=== PATIENT | female | born 1990 | race Two or more races ===

== ENCOUNTER 2020-12-21 18:07 | Emergency (ER) | payer MEDICAID, SELFPAY ==
[2020-12-21] MEDS ORDERED: HYDROmorphone 0.5 MG/0.5 ML Syringe IVPUSH ONE (18:37)
--- NOTE | 2020-12-21 18:58 | EDM.PDOC ---
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 The patient reports that her last menstrual period was 10/27/20. She states that today she took a test and it did come back positive and states she was approximately 5 to 6 weeks . She states that about an hour prior to arrival in the emergency department she did develop some vaginal bleeding. She states that she did not even fully saturate 1 pad and came to the emergency department. She also complains of severe lower pelvic cramping. She denies any recent fever, chills, nausea, vomiting or diarrhea. She denies any urinary symptoms. She is a 4 para 2. Bilateral Lower Abdominal Pain Score (Numeric/FACES): 8 - Related Data Allergies Allergy/AdvReac Type Severity Reaction Status Date / Time blueberry Allergy Hives Verified 12/21/20 18:25 Home Meds: Home Meds . 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 - Infectious Disease History Infectious Disease History: Reports: None - Past Surgical History GI Surgical History: Reports: Appendectomy Social & Family History - Family History Family Medical History: No Pertinent Family History - Tobacco Use Tobacco Use Status *Q: Never Tobacco User Second Hand Smoke Exposure: No - Caffeine Use Caffeine Use: Reports: None - Recreational Drug Use Recreational Drug Use: No ED ROS GENERAL - Review of Systems Review Of Systems: See Below Constitutional: Reports: No Symptoms HEENT: Reports: No Symptoms Respiratory: Reports: No Symptoms Cardiovascular: Reports: No Symptoms Endocrine: Reports: No Symptoms GI/Abdominal: Reports: Abdominal Pain (Suprapubic). Denies: Constipation, Diarrhea, Decreased Appetite, Nausea, Vomiting : Reports: No Symptoms Musculoskeletal: Reports: No Symptoms Skin: Reports: No Symptoms Neurological: Reports: No Symptoms Psychiatric: Reports: No Symptoms Hematologic/Lymphatic: Reports: No Symptoms Immunologic: Reports: No Symptoms ED EXAM - Physical Exam Exam: See Below Exam Limited By: No Limitations General Appearance: Alert, WD/WN, Moderate Distress Ears: Normal External Exam, Hearing Grossly Normal Nose: Normal Inspection Throat/Mouth: Normal Inspection, Normal Lips, Normal Voice, No Airway Compromise Head: Atraumatic Neck: Normal Inspection, Supple Respiratory/Chest: No Respiratory Distress, Lungs Clear, Normal Breath Sounds, No Accessory Muscle Use, Chest Non-Tender Cardiovascular: Normal Peripheral Pulses, Regular Rate, Rhythm, No Edema, No Murmur GI/Abdominal Exam: Normal Bowel Sounds, Soft, No Distention, Tender (Suprapubic) Rectal Exam: Deferred Back Exam: Normal Inspection Extremities: Normal Inspection Neurological: Alert, Oriented, Normal Cognition Psychiatric: Normal Affect, Normal Mood Skin Exam: Warm, Dry, Intact, Normal Color, No Rash Lymphatic: No Adenopathy Course - Vital Signs Text/Narrative:: Patient presents the emergency department with lower pelvic pain. She states this developed this afternoon. Last menstrual period was 10/27/2020. She states that she did take a test today and it came back positive. Proximally an hour prior to the arrival in the emergency department she developed vaginal bleeding and lower pelvic pain. She states that is more severe on her left side than her right however she has bilateral pelvic tenderness noted. She denies any urinary symptoms. She states that she has not saturated 1 full pad since the bleeding has started and it has pretty much stopped by the time she arrived in the emergency department. I have ordered labs, saline lock, urinalysis, and a transvaginal ultrasound. The patient will also be medicated for pain. Last Recorded V/S: Last Vital Signs Temp 96.9 F 12/21/20 18:19 Pulse 78 12/21/20 18:19 Resp 18 12/21/20 18:19 BP 114/82 12/21/20 18:19 Pulse Ox 97 12/21/20 18:19 - Orders/Labs/Meds Orders: Active Orders 24 hr Category Date Time Status OB Transvaginal [US] Stat Exams 12/21/20 18:38 Taken CULTURE URINE [] Stat Lab 12/21/20 20:33 Received Labs: Laboratory Tests 12/21/20 12/21/20 12/21/20 Range/Units 19:05 19:05 19:05 WBC 10.18 H (3.98-10.04) K/mm3 RBC 5.03 (3.98-5.22) M/mm3 Hgb 13.6 D (11.2-15.7) gm/dl Hct 42.0 (34.1-44.9) % MCV 83.5 D (79.4-94.8) fl MCH 27.0 (25.6-32.2) pg MCHC 32.4 (32.2-35.5) g/dl RDW Std Deviation 46.7 H (36.4-46.3) fL Plt Count 432 H D (182-369) K/mm3 MPV 9.2 L (9.4-12.3) fl Neut % (Auto) 67.5 (34.0-71.1) % Lymph % (Auto) 22.0 (19.3-51.7) % [place] % (Auto) 8.0 (4.7-12.5) % Eos % (Auto) 1.7 (0.7-5.8) Baso % (Auto) 0.6 (0.1-1.2) % Neut # (Auto) 6.88 H (1.56-6.13) K/mm3 Lymph # (Auto) 2.24 (1.18-3.74) K/mm3 [place] # (Auto) 0.81 H (0.24-0.36) K/mm3 Eos # (Auto) 0.17 (0.04-0.36) K/mm3 Baso # (Auto) 0.06 (0.01-0.08) K/mm3 Manual Slide Review Sodium 138 (136-145) mEq/L Potassium 3.8 (3.5-5.1) mEq/L Chloride 102 (98-107) mEq/L Carbon Dioxide 25 (21-32) mEq/L Anion Gap 14.8 (5-15) BUN 11 (7-18) mg/dL Creatinine 0.7 (0.55-1.02) mg/dL Est Cr Clr Drug Dosing 127.08 mL/min Estimated GFR (MDRD) > 60 (>60) mL/min BUN/Creatinine Ratio 15.7 (14-18) Glucose 102 (74-106) mg/dL Calcium 8.4 L (8.5-10.1) mg/dL Total Bilirubin 0.7 (0.2-1.0) mg/dL AST 63 H (15-37) U/L ALT 138 H (14-59) U/L Alkaline Phosphatase 103 (46-116) U/L Total Protein 8.5 H (6.4-8.2) g/dl Albumin 3.8 (3.4-5.0) g/dl Globulin 4.7 gm/dL Albumin/Globulin Ratio 0.8 L (1-2) HCG, Quant 3.0 mIU/mL Urine Color (Yellow) Urine Appearance (Clear) Urine pH (5.0-8.0) Ur Specific [place] (1.005-1.030) Urine Protein (Negative) Urine Glucose (UA) (Negative) Urine Ketones (Negative) Urine Occult Blood (Negative) Urine Nitrite (Negative) Urine Bilirubin (Negative) Urine Urobilinogen (0.2-1.0) Ur Leukocyte Esterase (Negative) Urine RBC (0-5) /hpf Urine WBC (0-5) /hpf Ur Squamous Epith Cells (0-5) /hpf Amorphous Sediment (NOT SEEN) /hpf Urine Bacteria (FEW) /hpf Urine Mucus (FEW) /hpf Blood Type O POSITIVE 12/21/20 Range/Units 20:33 WBC (3.98-10.04) K/mm3 RBC (3.98-5.22) M/mm3 Hgb (11.2-15.7) gm/dl Hct (34.1-44.9) % MCV (79.4-94.8) fl MCH (25.6-32.2) pg MCHC (32.2-35.5) g/dl RDW Std Deviation (36.4-46.3) fL Plt Count (182-369) K/mm3 MPV (9.4-12.3) fl Neut % (Auto) (34.0-71.1) % Lymph % (Auto) (19.3-51.7) % [place] % (Auto) (4.7-12.5) % Eos % (Auto) (0.7-5.8) Baso % (Auto) (0.1-1.2) % Neut # (Auto) (1.56-6.13) K/mm3 Lymph # (Auto) (1.18-3.74) K/mm3 [place] # (Auto) (0.24-0.36) K/mm3 Eos # (Auto) (0.04-0.36) K/mm3 Baso # (Auto) (0.01-0.08) K/mm3 Manual Slide Review Sodium (136-145) mEq/L Potassium (3.5-5.1) mEq/L Chloride (98-107) mEq/L Carbon Dioxide (21-32) mEq/L Anion Gap (5-15) BUN (7-18) mg/dL Creatinine (0.55-1.02) mg/dL Est Cr Clr Drug Dosing mL/min Estimated GFR (MDRD) (>60) mL/min BUN/Creatinine Ratio (14-18) Glucose (74-106) mg/dL Calcium (8.5-10.1) mg/dL Total Bilirubin (0.2-1.0) mg/dL AST (15-37) U/L ALT (14-59) U/L Alkaline Phosphatase (46-116) U/L Total Protein (6.4-8.2) g/dl Albumin (3.4-5.0) g/dl Globulin gm/dL Albumin/Globulin Ratio (1-2) HCG, Quant mIU/mL Urine Color Yellow (Yellow) Urine Appearance Slt cloudy H (Clear) Urine pH 6.0 (5.0-8.0) Ur Specific [place] 1.025 (1.005-1.030) Urine Protein Negative (Negative) Urine Glucose (UA) Negative (Negative) Urine Ketones Negative (Negative) Urine Occult Blood Trace-intact H (Negative) Urine Nitrite Negative (Negative) Urine Bilirubin Negative (Negative) Urine Urobilinogen 0.2 (0.2-1.0) Ur Leukocyte Esterase 1+ H (Negative) Urine RBC 0-5 (0-5) /hpf Urine WBC 5-10 H (0-5) /hpf Ur Squamous Epith Cells 10-20 H (0-5) /hpf Amorphous Sediment Moderate H (NOT SEEN) /hpf Urine Bacteria Few (FEW) /hpf Urine Mucus Few (FEW) /hpf Blood Type Meds: Medications Discontinued Medications Generic Name Dose Route Start Last Admin Trade Name Freq PRN Reason Stop Dose Admin Hydromorphone HCl 0.5 mg 12/21/20 18:37 12/21/20 19:38 Hydromorphone 0.5 Mg/0.5 Ml Syringe IVPUSH 12/21/20 18:38 0.5 mg ONETIME ONE Administration Metoclopramide HCl 5 mg 12/21/20 20:36 12/21/20 21:04 Metoclopramide 10 Mg/2 Ml Sdv IVPUSH 12/21/20 20:37 5 mg ONETIME ONE Administration Ondansetron HCl 4 mg 12/21/20 19:44 12/21/20 20:10 Ondansetron 4 Mg/2 Ml Sdv IVPUSH 12/21/20 19:45 4 mg ONETIME ONE Administration - Re-Assessments/Exams Free Text/Narrative Re-Assessment/Exam: 12/21/20 20:22 Hematology reveals a WBC of 10.18, hemoglobin 13.6, hematocrit 42, platelet count 432, chemistry reveals a sodium 138, potassium 3.8, anion gap 14.8, BUN 1 1, creatinine 0.7, glucose is 102, AST is 63, ALT 138 quantitative hCG is 3.0 While in the ultrasound the patient is complaining of nausea likely due to being medicated with Dilaudid. I have ordered for the patient received 4 mg of Zofran. I have also ordered a urinalysis with micro. 12/21/20 21:37 Urinalysis reveals a trace of intact blood, nitrite negative, leukocyte Estrace 1+, urine WBC 5-10, urine squamous epithelial cells 10-20, amorphous sediment moderate Patient is O positive [facility] radiologist impression: 1. 6 mm cystic area in the lower uterine segment which could be a gestational sac and represent an early . No pole or heart rate. Estimated gestational age is 5 weeks and 2 days. Consider follow-up exam in 2 weeks. 2. 1.2 x 1 x 1.3 cm hypoechoic region in the anterior uterine fundus which may represent a fibroid. This is likely a threatened miscarriage. I discussed this with the patient and gave her strict return precautions should she develop heavy vaginal bleeding. She will need to follow up with Dr. Ortiz, her OBGYN, this week. Departure - Departure Time of Disposition: 21:41 Disposition: Home, Self-Care 01 Condition: Good Clinical Impression: Threatened - Discharge Information Instructions: Threatened Miscarriage, [id number], Pain Medicine Instructions, [id number] Referrals: Tyler Ortiz MD [Primary Care Provider] - Forms: ED Department Discharge Additional Instructions: You were seen in the emergency department today with complaints of lower abdominal pain and a positive test. Labs were completed as well as an ultrasound. Your labs did not show any sign of infection. Your hCG level was 3 which is significantly lower than where it should be at this stage of your . Your ultrasound revealed a cystic area in your lower uterus however no pole or heart rate was detected. Estimated gestational age is 5 weeks and 2 days. With this information it is likely you were going to have a miscarriage. You will develop significant lower abdominal cramping and vaginal bleeding. Should you develop heavy vaginal bleeding, greater than 1 pad per hour x3 hours, you will need to return to the emergency department for further evaluation. Otherwise, recommend that you follow-up with your PAINTER DECORATOR, Dr. Ortiz, sometime this week for reevaluation. You may take Aleve 2 tabs every 12 hours as needed for abdominal cramping. Sepsis Event Note (ED) - Evaluation Sepsis Screening Result: No Definite Risk - Focused Exam Vital Signs: Vital Signs Temp Pulse Resp BP Pulse Ox 12/21/20 18:19 96.9 F 78 18 114/82 97 - My Orders Last 24 Hours: My Active Orders 12/21/20 18:38 OB Transvaginal [US] Stat 12/21/20 20:33 CULTURE URINE [RM] Stat - Assessment/Plan Last 24 Hours: My Active Orders 12/21/20 18:38 OB Transvaginal [US] Stat 12/21/20 20:33 CULTURE URINE [RM] Stat
[2020-12-21] MEDS ORDERED: Ondansetron 4 MG/2 ML SDV IVPUSH ONE (19:44)
[2020-12-21] MEDS ORDERED: Metoclopramide 10 MG/2 ML SDV IVPUSH ONE (20:36)
--- NOTE | 2020-12-22 09:39 | US ---
First trimester obstetrical ultrasound: Multiple real-time images were obtained transabdominally and transvaginally. Comparison: No previous study is available Findings: No intrauterine gestational sac is seen. Small cystic area is seen within the cervix. Uncertain if this represents a miscarrying small gestational sac or a nabothian cyst. Both ovaries appear within normal limits. Small fibroid is noted within the subendometrial location within the anterior uterine body measuring 1.1 cm. Impression: 1. Cystic area within the cervix. Uncertain if this represents miscarrying gestational sac or a nabothian cyst. 2. Small uterine fibroid is seen. 3. No additional abnormality is seen. Diagnostic code #3 I agree with preliminary report from [facility] finalized on 12/21/20, 10:01 PM CDT, code 1
== END 2020-12-21 21:55 | disposition home or self-care (01) ==
LOC: JD.ED 18:07
DX: O20.0 Threatened abortion (principal); Z3A.01 Less than 8 weeks gestation of pregnancy
CPT/HCPCS: 36415; 76817; 80053; 81001; 84702; 85025; 86900; 86901; 87086; 96374; 96375; 99284; J1170; J2405; J2765; 99283

== ENCOUNTER 2021-01-27 22:20 | Emergency (ER) | payer MEDICAID ==
[2021-01-28] MEDS ORDERED: Ondansetron 4 MG Tab.DIS PO ONE (00:17)
--- NOTE | 2021-01-28 01:41 | EDM.PDOC ---
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 She had some blood when she wiped tonight. She has no pain. She denies fever, chills, cough, chest pain, shortness fo breath, nausea or vomiting. Dr Ortiz is her doctor and she has been getting HCGs and she had an US. The US showed a at 5 weeks a few weeks ago. Her last HCG was 2,591 on 01/14/21. She has an US scheduled for tomorrow. Onset: Sudden Duration: Minutes: Severity: Mild Improves with: Reports: None Worsens with: Reports: None Associated Symptoms: Reports: No Other Symptoms - Related Data Allergies Allergy/AdvReac Type Severity Reaction Status Date / Time bee venom protein (honey bee) Allergy Severe Hives Verified 01/27/21 22:32 blueberry Allergy Severe Hives Verified 01/27/21 22:32 Home Meds: Home Meds Pnv No.103/Folic/Om3s/Fish Oil [ Gummies] 1 tab PO DAILY 01/27/21 [History] Past Medical History - Past Health History Medical/Surgical History: Denies Medical/Surgical History Cardiovascular History: Reports: Heart Murmur 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: , 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 - Infectious Disease History Infectious Disease History: Reports: None - Past Surgical History GI Surgical History: Reports: Appendectomy Female Surgical History: Reports: Section Social & Family History - Family History Family Medical History: No Pertinent Family History - Tobacco Use Tobacco Use Status *Q: Never Tobacco User - Caffeine Use Caffeine Use: Reports: None - Recreational Drug Use Recreational Drug Use: No ED ROS GENERAL - Review of Systems Review Of Systems: See Below Constitutional: Reports: No Symptoms HEENT: Reports: No Symptoms Respiratory: Reports: No Symptoms Cardiovascular: Reports: No Symptoms Endocrine: Reports: No Symptoms GI/Abdominal: Reports: No Symptoms : Reports: Other (vaginal bleeding) Musculoskeletal: Reports: No Symptoms Skin: Reports: No Symptoms ED EXAM - Physical Exam Exam: See Below Exam Limited By: No Limitations General Appearance: Alert, No Apparent Distress Ears: Normal External Exam Nose: Normal Inspection Head: Atraumatic, Normocephalic Neck: Normal Inspection Respiratory/Chest: No Respiratory Distress, Lungs Clear, Normal Breath Sounds Cardiovascular: Regular Rate, Rhythm, No Edema, No Murmur GI/Abdominal Exam: Soft, Non-Tender, No Organomegaly, No Mass Extremities: Normal Inspection Neurological: Alert, Oriented, No Motor/Sensory Deficits Course - Vital Signs Last Recorded V/S: Last Vital Signs Temp 97.6 F 01/27/21 22:36 Pulse 83 01/27/21 22:36 Resp 20 01/27/21 22:36 BP 126/75 01/27/21 22:36 Pulse Ox 100 01/27/21 22:36 - Orders/Labs/Meds Orders: Active Orders 24 hr Category Date Time Status OB Transvaginal [US] Stat Exams 01/27/21 22:55 Taken Labs: Laboratory Tests 01/27/21 01/27/21 01/27/21 Range/Units 23:27 23:27 23:27 WBC 9.00 (3.98-10.04) K/mm3 RBC 4.64 (3.98-5.22) M/mm3 Hgb 13.2 (11.2-15.7) gm/dl Hct 40.0 (34.1-44.9) % MCV 86.2 (79.4-94.8) fl MCH 28.4 (25.6-32.2) pg MCHC 33.0 (32.2-35.5) g/dl RDW Std Deviation 50.4 H (36.4-46.3) fL Plt Count 426 H (182-369) K/mm3 MPV 9.5 (9.4-12.3) fl Neut % (Auto) 57.4 (34.0-71.1) % Lymph % (Auto) 30.8 (19.3-51.7) % [place] % (Auto) 8.8 (4.7-12.5) % Eos % (Auto) 1.9 (0.7-5.8) Baso % (Auto) 0.9 (0.1-1.2) % Neut # (Auto) 5.17 (1.56-6.13) K/mm3 Lymph # (Auto) 2.77 (1.18-3.74) K/mm3 [place] # (Auto) 0.79 H (0.24-0.36) K/mm3 Eos # (Auto) 0.17 (0.04-0.36) K/mm3 Baso # (Auto) 0.08 (0.01-0.08) K/mm3 HCG, Quant 561.0 mIU/mL Blood Type O POSITIVE Meds: Medications Discontinued Medications Generic Name Dose Route Start Last Admin Trade Name Frenicol PRN Reason Stop Dose Admin Ondansetron HCl 4 mg 01/28/21 00:17 01/28/21 00:21 Ondansetron 4 Mg Tab.Dis PO 01/28/21 00:18 4 mg ONETIME ONE Administration - Re-Assessments/Exams Free Text/Narrative Re-Assessment/Exam: 01/28/21 01:38 I ordered labs and an US. Her CBC looks good. She is O positive. Her HCG today is 561. The US shows gestational sac present but no pole or heart rate. Estimated gestational age is 5 weeks 5 days. Findings may represent an early gestation. Consider follow-up examination in 2 weeks. 1.6 X 1.4 X 1.4cm anterior fundal fibroid. I feel this is a threatened . I will have her call Dr Ortiz in the morning. Departure - Departure Time of Disposition: 01:45 Disposition: Home, Self-Care 01 Condition: Good Clinical Impression: Threatened - Discharge Information *PRESCRIPTION DRUG MONITORING PROGRAM REVIEWED*: Not Applicable *COPY OF PRESCRIPTION DRUG MONITORING REPORT IN PATIENT GARETH: Not Applicable Referrals: Tyler Ortiz MD [Primary Care Provider] - 1 Week Additional Instructions: Your HCG level went from 2.591 on 01/14/21 to 561 today. Your ultrasound shows a gestational sac but no pole or heart rate. These are not good signs. I feel you are going to have a miscarriage. Call Dr Ortiz in the morning. Please return if you are worse such as pain, or vaginal bleeding filling more then a pad an hour. Sepsis Event Note (ED) - Evaluation Sepsis Screening Result: No Definite Risk - Focused Exam Vital Signs: Vital Signs Temp Pulse Resp BP Pulse Ox 01/27/21 22:36 97.6 F 83 20 126/75 100 - My Orders Last 24 Hours: My Active Orders 01/27/21 22:55 OB Transvaginal [US] Stat - Assessment/Plan Last 24 Hours: My Active Orders 01/27/21 22:55 OB Transvaginal [US] Stat
--- NOTE | 2021-01-28 08:25 | US ---
First trimester obstetrical ultrasound: Multiple real-time images were obtained transvaginally. Dates: Current ultrasound: GAVIN 09/21/21, gestational age 5 weeks 5 days Single intrauterine gestational sac is seen. No discrete pole or yolk sac is noted. Small fibroid is noted within the fundus of the uterus measuring 1.6 cm. Left maternal ovary is not visualized. Right maternal ovary is felt to be within normal limits. Measurements: Gestational sac: 0.93 cm - 5 weeks 5 days Impression: 1. Single intrauterine gestation. Dates as noted above. No yolk sac or pole are seen. Consider repeating study in 11 days to hopefully confirm normal and rule out miscarriage. 2. Small uterine fundus fibroid. Diagnostic code #2 I agree with preliminary report from [facility], finalized on 01/28/21, 2:19 AM CDT, code 1
== END 2021-01-28 01:54 | disposition home or self-care (01) ==
LOC: JD.ED 22:20
DX: O20.0 Threatened abortion (principal); Z91.030 Bee allergy status; Z91.018 Allergy to other foods; Z3A.01 Less than 8 weeks gestation of pregnancy
CPT/HCPCS: 36415; 76817; 84702; 85025; 86900; 86901; 99284; A9270; 99283

== ENCOUNTER 2021-01-28 18:33 | Day surgery (SDC) | payer MEDICAID ==
[2021-01-28] MEDS ORDERED: Ondansetron 4 MG/2 ML SDV IVPUSH ONE (19:29)
[2021-01-28] MEDS ORDERED: HYDROmorphone 0.5 MG/0.5 ML Syringe IVPUSH ONE ×2 (19:29→20:22)
[2021-01-28] MEDS ORDERED: Sodium Chloride 0.9% 1,000 ML IV SCH (19:30)
--- NOTE | 2021-01-28 19:38 | EDM.PDOC ---
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 Singh is a very pleasant 30-year-old woman who now presents the ED due to a spontaneous . The patient is -0-1-2, LMP 11/27/2021, giving her a gestational age of 8 weeks 6 days by dates with an GAVIN of 09/03/2021. An ultrasound a few weeks ago showed an intrauterine at 5 weeks gestation. Her quantitative hCG was 2591 on 01/14/2021. Medical records indicate that she was seen in this ED yesterday, 01/27/2021, after developing scant painless vaginal bleeding with no other symptoms. She was found to be hemodynamically stable, afebrile, saturating 100% on room air. Her physical exam, including her abdomen, was unremarkable. Work-up included a CBC, quantitative hCG, blood type, and transvaginal ultrasound. Her quantitative hCG was found to be down to 561. Her blood type is O+. A transvaginal ultrasound found a single intrauterine gestation at 5 weeks 5 days, but no yolk sac or pole found. The patient was discharged home with the recommendation that she follow-up with her INSTRUMENT REPAIR SPECIALIST today. The patient states that she contacted her INSTRUMENT REPAIR SPECIALIST today, who told her to expect vaginal bleeding, including passing clots. She was to take ibuprofen as needed for discomfort. He wanted to see her in 2 weeks. The patient now returns to the ED stating that she developed pelvic cramps and significant vaginal bleeding around 17:30 this evening, including passing clots. She estimates the amount of bleeding to be 2 pads per hour. No recent fever. The patient states that she has not eaten anything today, although she drank some water and apple juice around noon today. Nothing since. Here in the ED tonight, the patient's initial BP is found to be elevated at 161/99, otherwise, she is hemodynamically stable, afebrile, saturating 98% on room air. She appears to be anxious and somewhat tearful, although in no acute distress. Prior to yesterday, the patient denies having a recent fever, chills, sore throat, ear pain, nasal or sinus congestion, cough, dyspnea, chest pain, palpitations, nausea, vomiting, constipation, diarrhea, abdominal pain, urinary symptoms, recent weight gain or weight loss, recent bloody bowel movements or black bowel movements, recent joint aches, headaches, or rashes. The patient does not have a PCP. Her INSTRUMENT REPAIR SPECIALIST is Dr. Tyler Ortiz. Bilateral Lower Abdomen Pain Score (Numeric/FACES): 10 - Related Data Allergies Allergy/AdvReac Type Severity Reaction Status Date / Time bee venom protein (honey bee) Allergy Severe Hives Verified 01/28/21 18:49 blueberry Allergy Severe Hives Verified 01/28/21 18:49 Home Meds: Home Meds Hydrocodone/Acetaminophen [Hydrocodone-Acetamin 5-325 mg] 1 - 2 each PO Q6H PRN #16 tablet 01/28/21 [Rx] Ibuprofen 600 mg PO Q6H PRN #60 01/28/21 [Rx] miSOPROStoL [Cytotec] 400 mcg PO Q6H #8 tablet 01/28/21 [Rx] Past Medical History INSTRUMENT REPAIR SPECIALIST History: Reports: Spontaneous (x 1) Endocrine/Metabolic History: Reports: Obesity/BMI 30+ - Past Surgical History HEENT Surgical History: Reports: Oral Surgery (dental extraction) GI Surgical History: Reports: Appendectomy Female Surgical History: Reports: Section (x 2) Social & Family History - Tobacco Use Tobacco Use Status *Q: Never Tobacco User - Caffeine Use Caffeine Use: Reports: None - Alcohol Use Alcohol Use History: No - Recreational Drug Use Recreational Drug Use: No - Living Situation & Occupation Living situation: Reports: Single, with Family Occupation: Unemployed ED ROS GENERAL - Review of Systems Review Of Systems: Comprehensive ROS is negative, except as noted in HPI. ED EXAM - Physical Exam Exam: See Below Exam Limited By: No Limitations General Appearance: Alert, WD/WN, Anxious Eye Exam: Bilateral Eye: EOMI, Normal Inspection Ears: Normal External Exam, Hearing Grossly Normal Nose: Normal Inspection Throat/Mouth: Normal Inspection, Normal Lips, Normal Voice, No Airway Compromise Head: Atraumatic, Normocephalic Neck: Normal Inspection, Full Range of Motion Respiratory/Chest: No Respiratory Distress, Lungs Clear, Normal Breath Sounds, No Accessory Muscle Use Cardiovascular: Normal Peripheral Pulses, Regular Rate, Rhythm, No Edema, No Gallop, No JVD, No Murmur, No Rub GI/Abdominal Exam: Normal Bowel Sounds, Soft, No Organomegaly, No Distention, No Abnormal Bruit, No Mass, Tender (Suprapubically only. Nontender elsewhere.) Back Exam: Normal Inspection, Full Range of Motion, NT Extremities: Normal Inspection, Normal Range of Motion, No Pedal Edema, Normal Capillary Refill Neurological: Alert, Oriented, Normal Cognition, No Motor/Sensory Deficits Psychiatric: Anxious, Tearful Skin Exam: Warm, Dry, Intact, Normal Color, No Rash Course - Vital Signs Last Recorded V/S: Last Vital Signs Temp 36.2 C 01/28/21 18:51 Pulse 60 01/28/21 18:51 Resp 15 01/28/21 18:51 BP 161/99 H 01/28/21 18:51 Pulse Ox 98 01/28/21 18:51 - Orders/Labs/Meds Orders: Active Orders 24 hr Category Date Time Status Patient Status [ADT] Routine ADT 01/28/21 20:29 Active Sodium Chloride 0.9% [Normal Saline] 1,000 ml Med 01/28/21 19:30 Active IV ASDIRECTED Schedule Procedure [COMM] Stat Oth 01/28/21 20:29 Ordered Medication Orders Sodium Chloride (Normal Saline) 1,000 mls @ 150 mls/hr IV ASDIRECTED SAILAJA Last Admin: 01/28/21 19:51 Dose: 150 mls/hr Documented by: TYLER Labs: Laboratory Tests 01/28/21 Range/Units 19:45 SARS-CoV-2 RNA (TED) Negative (NEGATIVE) Meds: Medications Generic Name Dose Route Start Last Admin Trade Name Freq PRN Reason Stop Dose Admin Sodium Chloride 1,000 mls @ 150 mls/hr 01/28/21 19:30 01/28/21 19:51 Normal Saline IV 150 mls/hr ASDIRECTED SAILAJA Administration Discontinued Medications Generic Name Dose Route Start Last Admin Trade Name Freq PRN Reason Stop Dose Admin Dexamethasone Confirm 01/28/21 20:54 Dexamethasone 4 Mg/Ml 5 Ml Mdv Administered 01/28/21 20:55 Dose 20 mg .ROUTE .STK-MED ONE Doxycycline Hyclate 200 mg 01/28/21 20:42 01/28/21 20:56 Doxycycline 100 Mg Cap PO 01/28/21 20:43 200 mg ONETIME ONE Administration Fentanyl Confirm 01/28/21 20:53 Fentanyl 250 Mcg/5 Ml Sdv Administered 01/28/21 20:54 Dose 250 mcg .ROUTE .STK-MED ONE Hydromorphone HCl 0.5 mg 01/28/21 19:29 01/28/21 19:51 Hydromorphone 0.5 Mg/0.5 Ml Syringe IVPUSH 01/28/21 19:30 0.5 mg ONETIME ONE Administration Hydromorphone HCl 0.5 mg 01/28/21 20:22 01/28/21 20:28 Hydromorphone 0.5 Mg/0.5 Ml Syringe IVPUSH 01/28/21 20:23 0.5 mg ONETIME ONE Administration Ketorolac Tromethamine Confirm 01/28/21 20:54 Ketorolac 30 Mg/Ml Sdv Administered 01/28/21 20:55 Dose 30 mg .ROUTE .STK-MED ONE Lidocaine HCl Confirm 01/28/21 20:54 Lidocaine 1% 5 Ml Sdv Administered 01/28/21 20:55 Dose 5 ml .ROUTE .STK-MED ONE Ondansetron HCl 4 mg 01/28/21 19:29 01/28/21 19:51 Ondansetron 4 Mg/2 Ml Sdv IVPUSH 01/28/21 19:30 4 mg ONETIME ONE Administration Ondansetron HCl Confirm 01/28/21 20:54 Ondansetron 4 Mg/2 Ml Sdv Administered 01/28/21 20:55 Dose 4 mg .ROUTE .STK-MED ONE Propofol Confirm 01/28/21 20:53 Propofol 200 Mg/20 Ml Sdv Administered 01/28/21 20:54 Dose 400 mg .ROUTE .STK-MED ONE - Re-Assessments/Exams Free Text/Narrative Re-Assessment/Exam: 01/28/21 19:33 As above, the patient is 8 weeks 6 days gestation, by dates, LMP 11/27/2020, GAVIN 09/03/2021, -0-1-2. She had a scant amount of painless vaginal bleeding last night, and was seen in this ED where a CBC was unremarkable, but her quantitative hCG was 561, down from 2591 on 01/14/2021. Her blood type is O+. A transvaginal ultrasound found a single intrauterine gestation at 5 weeks 5 days, but with no yolk sac or pole. The patient contacted Dr. Ortiz today, who told her that she should expect to have vaginal bleeding, including passing clots, and to take ibuprofen for discomfort. He wanted to see her in 2 weeks. The patient now returns to the ED after developing consistent vaginal bleeding, including passing clots, along with pelvic cramps around 17:30 this evening. She last ate yesterday. Case discussed with Dr. Lovell at 19:29. He will come to the ED to evaluate the patient, with the intention of taking her to the operating room for a D&C. He asked that we call the OR team in. 01/28/21 19:51 Dr. Lovell is here. Departure - Departure Time of Disposition: 19:52 Disposition: Refer to Observation Condition: Good Clinical Impression: Spontaneous - Discharge Information *PRESCRIPTION DRUG MONITORING PROGRAM REVIEWED*: Not Applicable *COPY OF PRESCRIPTION DRUG MONITORING REPORT IN PATIENT GARETH: Not Applicable Sepsis Event Note (ED) - Evaluation Sepsis Screening Result: No Definite Risk - Focused Exam Vital Signs: Vital Signs Temp Pulse Resp BP Pulse Ox 01/28/21 18:51 36.2 C 60 15 161/99 H 98 - My Orders Last 24 Hours: My Active Orders 01/28/21 19:30 Sodium Chloride 0.9% [Normal Saline] 1,000 ml IV ASDIRECTED - Assessment/Plan Last 24 Hours: My Active Orders 01/28/21 19:30 Sodium Chloride 0.9% [Normal Saline] 1,000 ml IV ASDIRECTED
--- NOTE | 2021-01-28 20:38 | PCM.HP.2 ---
H&P History of Present Illness - General Date of Service: 01/28/21 Admit Problem/Dx: Admission Diagnosis/Problem Admission Diagnosis/Problem Incomplete Source of Information: Patient History Limitations: Reports: No Limitations - History of Present Illness Initial Comments - Free Text/Narative: Norma Singh is a 30-year-old -0-1-2 female at 8 weeks 6 days by certain LMP of 11/27/2020 who presents with vaginal bleeding following recent diagnosis of suspected missed . This was determined after patient was seen in the emergency department on the evening of 01/27 after she started to have some small amount of vaginal bleeding. Her quantitative hCG was down to 561. A transvaginal ultrasound found a single intrauterine gestational sac at 5 weeks 5 days without a yolk sac or pole found. Patient had previously been seen by Dr. Ortiz on 01/15 and had an ultrasound done at that time where the was noted to have an intrauterine gestational sac that was measuring at 5 weeks 1 day. Patient was advised to contact the office today and she was told that she will likely possibly sometime in the next day or so. She has had increased amount of bleeding that started this evening where she was soaking through 2 pads that started after 17:30 and she started to pass large clots. She was also having significant amount of cramping and pain. Patient does not want to consider other options for management and would like to have a suction dilation and curettage. She denies any fevers or chills. She reports that she did have some paresthesias with the bleeding but this has not continued since the initial bleeding episode. She denies any pain or burning with urination. Reports that she is having some constipation but denies any diarrhea. Onset of Symptoms: Reports: Today, Sudden Symptom Onset Date: 01/28/21 Symptom Onset Time: 17:30 Duration of Symptoms: Reports: Hour(s): Location: Reports: Pelvis Quality: Reports: Pressure, Throbbing Severity: Severe Bilateral Lower Abdomen Pain Score (Numeric/FACES): 10 - Related Data Allergies/Adverse Reactions: Allergies Allergy/AdvReac Type Severity Reaction Status Date / Time bee venom protein (honey bee) Allergy Severe Hives Verified 01/28/21 18:49 blueberry Allergy Severe Hives Verified 01/28/21 18:49 Home Medications: Home Meds Hydrocodone/Acetaminophen [Hydrocodone-Acetamin 5-325 mg] 1 - 2 each PO Q6H PRN #16 tablet 01/28/21 [Rx] Ibuprofen 600 mg PO Q6H PRN #60 01/28/21 [Rx] miSOPROStoL [Cytotec] 400 mcg PO Q6H #8 tablet 01/28/21 [Rx] Past Medical History - Past Health History Medical/Surgical History: Denies Medical/Surgical History Cardiovascular History: Reports: Heart Murmur 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: 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 (x 1) : 4 Para: 1 Endocrine/Metabolic History: Reports: Obesity/BMI 30+ - Infectious Disease History Infectious Disease History: Reports: None - Past Surgical History HEENT Surgical History: Reports: Oral Surgery (dental extraction) GI Surgical History: Reports: Appendectomy Female Surgical History: Reports: Section (x 2), D&C (for retained products of conception) Social & Family History - Family History Family Medical History: No Pertinent Family History - Tobacco Use Tobacco Use Status *Q: Never Tobacco User - Tobacco Core Measures Tobacco Use/Smoking Within Last 30 Days: No Smokeless Tobacco Use in Last 30 Days: No - Caffeine Use Caffeine Use: Reports: None - Alcohol Use Alcohol Use History: No - Recreational Drug Use Recreational Drug Use: No - Living Situation & Occupation Living situation: Reports: Single, with Family Occupation: Unemployed H&P Review of Systems - Review of Systems: Review Of Systems: See Below General: Denies: Fever, Chills, Malaise, Weakness, Fatigue HEENT: Denies: Headaches, Rhinitis, Post Nasal Drip, Sore Throat, Visual Changes Pulmonary: Denies: Shortness of Breath, Wheezing, Pleuritic Chest Pain, Cough Cardiovascular: Denies: Chest Pain, Palpitations, Dyspnea on Exertion, Orthopnea Gastrointestinal: Reports: Abdominal Pain, Constipation. Denies: Diarrhea, Nausea, Vomiting Genitourinary: Denies: Dysuria, Frequency, Burning, Pain, Urgency Musculoskeletal: Reports: Back Pain Skin: Denies: Rash, Lesions Psychiatric: Reports: Anxiety. Denies: Depression Exam - Exam Exam: See Below - Vital Signs Vital Signs: Last Vital Signs Temp 36.2 C 01/28/21 18:51 Pulse 60 01/28/21 18:51 Resp 15 01/28/21 18:51 BP 161/99 H 01/28/21 18:51 Pulse Ox 98 01/28/21 18:51 Weight: 100.244 kg - Exam General: Alert, Oriented HEENT: Conjunctiva Clear, EOMI Neck: Supple, Trachea Midline Lungs: Clear to Auscultation, Normal Respiratory Effort Cardiovascular: Regular Rate, Regular Rhythm GI/Abdominal Exam: Soft, No Distention, Tender (mild to moderate diffuse). No: Guarding, Rigid, Rebound (Female) Exam: Deferred Extremities: Normal Inspection, Non-Tender, No Pedal Edema Skin: Warm, Dry, Intact Neuro Extensive - Mental Status: Normal Mood/Affect Psychiatric: Alert, Normal Affect, Normal Mood Sepsis Event Note - Evaluation Sepsis Screening Result: No Definite Risk - Focused Exam Vital Signs: Vital Signs Temp Pulse Resp BP Pulse Ox 01/28/21 18:51 36.2 C 60 15 161/99 H 98 - Problem List (1) Incomplete SNOMED Code(s): 833970144 ICD Code: O03.4 - INCOMPLETE SPONTANEOUS WITHOUT COMPLICATION Status: Acute Current Visit: Yes Problem List Initiated/Reviewed/Updated: Yes Orders Last 24hrs: Active Orders 24 hr Category Date Time Status Patient Status [ADT] Routine ADT 01/28/21 20:29 Active CORONAVIRUS COVID-19 TED [MOLEC] Stat Lab 01/28/21 19:45 Received Sodium Chloride 0.9% [Normal Saline] 1,000 ml Med 01/28/21 19:30 Active IV ASDIRECTED Schedule Procedure [COMM] Stat Oth 01/28/21 20:29 Ordered Medication Orders Sodium Chloride (Normal Saline) 1,000 mls @ 150 mls/hr IV ASDIRECTED SAILAJA Last Admin: 01/28/21 19:51 Dose: 150 mls/hr Documented by: TYLER Assessment/Plan Comment:: Norma Singh is a 30-year-old -0-1-2 female with incomplete with significant vaginal bleeding after she had been diagnosed with missed in the evening of 01/27. Patient had sudden onset of bleeding this evening that has continued while she has been on the floor for the emergency department * Patient was counseled on risks, benefits and alternatives for incomplete including watchful waiting, medical management with medication or surgical management. Patient desired to proceed with surgical management. * Consents were signed with the patient for suction dilation and curettage * Patient has been n.p.o. since noon when she drank some water and has last had something to eat at around 7:30 PM on 01/27 * Continue IV fluids for fluid maintenance * Doxycycline 200 mg p.o. for antibiotic prophylaxis * Plan for suction dilation and curettage in the operating room for completion of an incomplete * Patient to be discharged home after the procedure * Prescriptions for hydrocodone/acetaminophen and Cytotec were sent to the pharmacy for her to take after the procedure Jose Lovell MD 8:56 PM 01/28/2021 - Mortality Measure Prognosis:: Good
--- NOTE | 2021-01-28 20:38 | PCM.PREANE ---
Preanesthetic Assessment - Procedure Proposed Procedure: Suction Dilation and Curettage - Anesthesia/Transfusion/Family Hx Anesthesia History: Prior Anesthesia Reaction Type of Anesthesia Reaction: Excessive Nausea/Vomiting Family History of Anesthesia Reaction: No Transfusion History: No Prior Transfusion(s) Intubation History: Unknown - Review of Systems General: Weakness Pulmonary: No Symptoms Cardiovascular: No Symptoms Gastrointestinal: Abdominal Pain (Cramping), Nausea Neurological: No Symptoms Other: Reports: None - Physical Assessment NPO Status Date: 01/28/21 NPO Status Time: 12:00 Vital Signs: Last Vital Signs Temp 97.2 F 01/28/21 18:51 Pulse 60 01/28/21 18:51 Resp 15 01/28/21 18:51 BP 161/99 H 01/28/21 18:51 Pulse Ox 98 01/28/21 18:51 Height: 1.78 m Weight: 100.244 kg ASA Class: 2 Mental Status: Alert & Oriented x3 Airway Class: Mallampati = 2 Dentition: Reports: Normal Dentition Thyro-Mental Finger Breadths: 3 Mouth Opening Finger Breadths: 3 ROM/Head Extension: Full Lungs: Clear to Auscultation, Normal Respiratory Effort Cardiovascular: Regular Rate, Regular Rhythm - Allergies Allergies/Adverse Reactions: Allergies Allergy/AdvReac Type Severity Reaction Status Date / Time bee venom protein (honey bee) Allergy Severe Hives Verified 01/28/21 18:49 blueberry Allergy Severe Hives Verified 01/28/21 18:49 - Blood Blood Available: Yes Product(s) Available: PRBC - Anesthesia Plan Pre-Op Medication Ordered: None - Acknowledgements Anesthesia Type Planned: General Anesthesia Pt an Appropriate Candidate for the Planned Anesthesia: Yes Alternatives and Risks of Anesthesia Discussed w Pt/Guardian: Yes Pt/Guardian Understands and Agrees with Anesthesia Plan: Yes PreAnesthesia Questionnaire - Past Health History Medical/Surgical History: Denies Medical/Surgical History Cardiovascular History: Reports: Heart Murmur 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) Neurological History: Reports: Migraines Psychiatric History: Reports: Anxiety Endocrine/Metabolic History: Reports: Obesity/BMI 30+ - Infectious Disease History Infectious Disease History: Reports: None - Past Surgical History HEENT Surgical History: Reports: Oral Surgery (dental extraction) GI Surgical History: Reports: Appendectomy Female Surgical History: Reports: Section (x 2) - SUBSTANCE USE Tobacco Use Status *Q: Never Tobacco User Second Hand Smoke Exposure: No Days Per Week of Alcohol Use: 0 Number of Drinks Per Day: 0 Total Drinks Per Week: 0 Recreational Drug Use History: No - HOME MEDS Home Medications: Home Meds Pnv No.103/Folic/Om3s/Fish Oil [ Gummies] 1 tab PO DAILY 01/27/21 [History] Ibuprofen 200 mg PO ONCALL PRN 01/28/21 [History] - CURRENT (IN HOUSE) MEDS Current Meds: Current Medications Sodium Chloride (Normal Saline) 1,000 mls @ 150 mls/hr IV ASDIRECTED [facility] Last Admin: 01/28/21 19:51 Dose: 150 mls/hr Documented by: Discontinued Medications Hydromorphone HCl (Hydromorphone 0.5 Mg/0.5 Ml Syringe) 0.5 mg IVPUSH ONETIME ONE Stop: 01/28/21 19:30 Last Admin: 01/28/21 19:51 Dose: 0.5 mg Documented by: Hydromorphone HCl (Hydromorphone 0.5 Mg/0.5 Ml Syringe) 0.5 mg IVPUSH ONETIME ONE Stop: 01/28/21 20:23 Last Admin: 01/28/21 20:28 Dose: 0.5 mg Documented by: Ondansetron HCl (Ondansetron 4 Mg/2 Ml Sdv) 4 mg IVPUSH ONETIME ONE Stop: 01/28/21 19:30 Last Admin: 01/28/21 19:51 Dose: 4 mg Documented by:
[2021-01-28] MEDS ORDERED: Doxycycline 100 MG Cap PO ONE (20:42)
[2021-01-28] MEDS ORDERED: Propofol 200 MG/20 ML SDV ONE (20:53)
[2021-01-28] MEDS ORDERED: fentaNYL 250 MCG/5 ML SDV ONE (20:53)
[2021-01-28] MEDS ORDERED: Dexamethasone 4 MG/ML 5 ML MDV ONE (20:54)
[2021-01-28] MEDS ORDERED: Ondansetron 4 MG/2 ML SDV ONE (20:54)
[2021-01-28] MEDS ORDERED: Ketorolac 30 MG/ML SDV ONE (20:54)
[2021-01-28] MEDS ORDERED: Lactated Ringers 1,000 ML ONE (21:26)
[2021-01-28] MEDS ORDERED: Methylergonovine 0.2 MG/1 ML Amp ONE (21:33)
[2021-01-28] MEDS ORDERED: Ondansetron 4 MG/2 ML SDV IVPUSH PRN (21:58)
[2021-01-28] MEDS ORDERED: HYDROmorphone 0.5 MG/0.5 ML Syringe IVPUSH PRN (21:58)
--- NOTE | 2021-01-28 21:59 | PCM.POSTAN ---
POST ANESTHESIA ASSESSMENT - MENTAL STATUS Mental Status: Alert Free Text/Narrative:: Drowsy - VITAL SIGNS Vital Signs: Last Vital Signs Temp 97.8 F 01/28/21 21:51 Pulse 60 01/28/21 18:51 Resp 11 L 01/28/21 21:51 BP 115/75 01/28/21 21:51 Pulse Ox 96 01/28/21 21:51 - RESPIRATORY Respiratory Status: Respiratory Rate WNL, Airway Patent, O2 Saturation Stable - CARDIOVASCULAR CV Status: Pulse Rate WNL, Blood Pressure Stable - GASTROINTESTINAL GI Status: No Symptoms - POST OP HYDRATION Hydration Status: Adequate & Stable
--- NOTE | 2021-01-28 22:06 | PCM.OPNOTE ---
- General Post-Op/Procedure Note Date of Surgery/Procedure: 01/28/21 Operative Procedure(s): Suction dilation and curettage Findings: Small to moderate amount of bleeding in the vaginal vault with small amount of active bleeding coming from the cervical opening. Cervical opening was dilated to approximately 1 cm. Small amount of uterine contents evacuated with suction curettage. No active bleeding noted at the end of the procedure. Pre Op Diagnosis: Incomplete Post-Op Diagnosis: Same Anesthesia Technique: General LMA Primary Surgeon: Jose Lovell Anesthesia Provider: Tiana Guy Pathology: Products of conception Fluid Replacement, Intraop: 800 Output, Urine Amount: 0 (Voided prior to procedure) EBL in mLs: 5 Complications: None Condition: Good Free Text/Narrative:: Procedure in Detail: Patient was counseled on risks, benefits and alternatives of the procedure and consents were signed prior to going back to the OR. She was given 200 mg of doxycycline for antibiotic prophylaxis. She was taken back to the OR and given general anesthesia with laryngeal mask airway that was placed without difficulty. She was placed in dorsal lithotomy position using yellowfin stirrups. She was prepped and draped in a normal sterile fashion. A sterile weighted speculum was placed in the vagina and the cervix was visualized. The anterior lip of the cervix was grasped with a single-tooth tenaculum. The cervix was serially dilated to a 21 Divehi Simons dilator. The vacuum was tested and reached an appropriate suction level. A 7 mm suction curettage was then placed into the uterine cavity and suction applied. The uterine cavity was suctioned circumferentially until a good cri was felt in all directions. The tissue that was removed was sent to pathology. The procedure was complete at this time and the tenaculum was removed from the cervix and good hemostasis was noted from the tenaculum sites. All instruments were removed from the vagina. Patient was given Methergine 200 mcg IM for uterine tone prior to waking her following the procedure. All needle and sponge counts were correct x 2. The patient was awoken and taken back to the recovery room in stable condition. She will be discharged home with Cytotec 400 mcg sublingual every 6 hours for uterine tone. The patient will be discharged home when she is ambulating, tolerating PO, pain is well controlled with PO medications and she is voiding normally. She was given strict precautions to return if she is having severe vaginal bleeding of more than 1 pad per hour for three hours, uncontrollable pain/josh sea/vomiting or if she is having a fever greater than 100.4 Sherlyn Lovell MD 10:06 PM 01/28/2021
[2021-01-28] MEDS: fentaNYL 100 MCG/2 ML SDV IVPUSH PRN ×2 (22:14→22:25)
[2021-01-28] MEDS ORDERED: Acetaminophen/HYDROcodone 325-5 MG Tab PO PRN (22:34)
--- NOTE | 2021-01-30 09:22 | PCM48HPAN ---
Post Anesthesia Note - EVALUATION WITHIN 48HRS OF ANESTHETIC Vital Signs in Normal Range: Yes Patient Participated in Evaluation: Yes Respiratory Function Stable: Yes Airway Patent: Yes Cardiovascular Function Stable: Yes Hydration Status Stable: Yes Pain Control Satisfactory: Yes Nausea and Vomiting Control Satisfactory: Yes Mental Status Recovered: Yes Vital Signs: Last Vital Signs Temp 97.8 F 01/28/21 23:00 Pulse 72 01/28/21 23:00 Resp 12 01/28/21 23:00 BP 120/85 01/28/21 23:00 Pulse Ox 96 01/28/21 23:00 Patient assessed at 221901/28/21 - COMMENTS/OBSERVATIONS Free Text/Narrative:: Patient assessed at 221901/28/21
== END 2021-01-28 23:15 | disposition home or self-care (01) ==
LOC: JD.ED 18:33 → JD.SDS 20:31
PROVIDERS: ATTEND Obstetrics & Gynecology
DX: O03.4 Incomplete spontaneous abortion without complication (principal); E66.9 Obesity, unspecified; Z91.030 Bee allergy status; Z91.018 Allergy to other foods; Z79.899 Other long term (current) drug therapy; Z90.49 Acquired absence of other specified parts of digestive tract; Z01.812 Encounter for preprocedural laboratory examination; Z20.822 Contact with and (suspected) exposure to COVID-19; Z68.31 Body mass index [BMI] 31.0-31.9, adult
CPT/HCPCS: 36415; 59812; 80053; 85025; 87635; 96374; 96375; 99284; A9270; J1100; J1170; J1885; J2210; J2405; J2704; J3010; J7030; J7120; 01965; U0002

== ENCOUNTER 2021-03-17 17:46 | Emergency (ER) | payer MEDICAID ==
--- NOTE | 2021-03-17 18:39 | CR ---
Chest: Portable view of the chest was obtained. Comparison: No prior chest imaging is available. Heart size and mediastinum are normal. Lungs are clear with no acute parenchymal change. No acute osseous abnormality is appreciated. Impression: 1. Nothing acute is seen on portable chest x-ray. Diagnostic code #1
--- NOTE | 2021-03-17 19:19 | EDM.PDOC ---
<Twan Talbot Susie - Last Filed: 03/17/21 19:25> ED HPI GENERAL MEDICAL PROBLEM - General Chief Complaint: Chest Pain Stated Complaint: CHEST PAIN X 3 DAYS Time Seen by Provider: 03/17/21 18:02 Source of Information: Reports: Patient, RN Notes Reviewed - History of Present Illness INITIAL COMMENTS - FREE TEXT/NARRATIVE: 30 yr old female with onset of ant. chest pain and dyspnea a couple of hrs ago. Continues with mild chest discomfort and dsypnea. Has also felt somewhat lightheaded. Hx of PE about 5 months ago during early . She did take "blood thinner medication for about 3 months". Unfortunately she did miscarry her twin about 6 weeks ago. Has not been otherwise ill. No recent surgery or recent travel. 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 Neurological History: Reports: Migraines Psychiatric History: Reports: Anxiety Endocrine/Metabolic History: Reports: Obesity/BMI 30+ - Infectious Disease History Infectious Disease History: Reports: None - Past Surgical History HEENT Surgical History: Reports: Oral Surgery GI Surgical History: Reports: Appendectomy Female Surgical History: Reports: Section, D&C Social & Family History - Family History Family Medical History: No Pertinent Family History - Tobacco Use Tobacco Use Status *Q: Never Tobacco User - Caffeine Use Caffeine Use: Reports: None - Recreational Drug Use Recreational Drug Use: No - Living Situation & Occupation Living situation: Reports: Single, with Family Occupation: Unemployed ED ROS GENERAL - Review of Systems Review Of Systems: See Below Constitutional: Denies: Fever, Chills, Diaphoresis HEENT: Reports: No Symptoms Respiratory: Reports: Shortness of Breath. Denies: Cough Cardiovascular: Reports: Chest Pain GI/Abdominal: Denies: Abdominal Pain, Nausea, Vomiting Musculoskeletal: Denies: Leg Pain Skin: Reports: No Symptoms Neurological: Reports: No Symptoms ED EXAM, GENERAL - Physical Exam Exam: See Below General Appearance: Alert, Anxious, Mild Distress Throat/Mouth: Normal Inspection, Normal Oropharynx Head: Atraumatic Neck: Supple Respiratory/Chest: No Respiratory Distress, Lungs Clear, Normal Breath Sounds. No: Rhonchi, Wheezing Cardiovascular: Regular Rate, Rhythm GI/Abdominal: Non-Tender Back Exam: No: CVA Tenderness (L), CVA Tenderness (R) Extremities: Normal Inspection. No: Pedal Edema, Leg Pain, Increased Warmth, Redness Neurological: Alert, Oriented, No Motor/Sensory Deficits Skin Exam: Warm, Dry, Normal Color, No Rash #1 Interpretation EKG Date: 03/17/21 Rhythm: NSR [place]: Normal P-Wave: Present QRS: Normal ST-T: Other (T wave inversion Lead III) Course - Re-Assessments/Exams Free Text/Narrative Re-Assessment/Exam: 03/17/21 19:37 CXR normal. EKG does show t wave inversion lead III adn V3. D dimer has come back elevated at 1.15. CT Pulmonary angiogram ordered. 03/17/21 19:38 Have ordered serum HCG. It is now well past change of shift. Will transfer care to Dr Avila. Departure - Departure Disposition: Home, Self-Care 01 Clinical Impression: Musculoskeletal chest pain Referrals: Tyler Ortiz MD [Primary Care Provider] - Forms: ED Department Discharge Additional Instructions: You were seen in the emergency room after developing chest pain, shortness of breath, and lightheadedness. Work-up in the ER included numerous blood tests, a chest x-ray, a CT angiogram of your chest, and an ECG. Your entire work-up was unremarkable, and does not explain the cause of your pain. You do not have a blood clot in your lungs. Based on your history, physical exam, and ER tests, the cause of your chest pain is most likely musculoskeletal in etiology. We recommend you take [id number] ibuprofen, 3 tablets (600 mg) with food, up to every 8 hours, as needed for discomfort. If any other problems, please do not hesitate to return to the ER. Sepsis Event Note (ED) - Evaluation Sepsis Screening Result: No Definite Risk <Dalton Avila - Last Filed: 03/17/21 21:48> Course - Vital Signs Last Recorded V/S: Last Vital Signs Temp 36.1 C 03/17/21 17:55 Pulse 84 03/17/21 17:55 Resp 16 03/17/21 17:55 BP 137/88 03/17/21 17:55 Pulse Ox 99 03/17/21 17:55 - Orders/Labs/Meds Orders: Active Orders 24 hr Category Date Time Status EKG 12 Lead [EKG Documentation Completion] [RC] STAT Care 03/17/21 17:54 Active Chest PE [Ang Chest] [CT] Stat Exams 03/17/21 19:24 Taken Acetaminophen/HYDROcodone [[place] 325-5 MG] Med 03/17/21 21:44 Once 2 tab PO ONETIME ONE Sodium Chloride 0.9% [Normal Saline] 45 ml Med 03/17/21 20:00 Active IV ASDIRECTED Sodium Chloride 0.9% [Saline Flush] Med 03/17/21 19:51 Active 10 ml FLUSH ONETIME PRN Medication Orders Sodium Chloride (Normal Saline) 45 mls @ 40 mls/hr IV ASDIRECTED SAILAJA Last Admin: 03/17/21 20:23 Dose: 40 mls/hr Documented by: WILLARD Sodium Chloride (Sodium Chloride 0.9% 10 Ml Syringe) 10 ml FLUSH ONETIME PRN PRN Reason: Keep Vein Open Last Admin: 03/17/21 20:23 Dose: 10 ml Documented by: WILLARD Labs: Laboratory Tests 03/17/21 03/17/21 03/17/21 Range/Units 18:35 18:35 18:35 WBC 11.09 H (3.98-10.04) K/mm3 RBC 4.73 (3.98-5.22) M/mm3 Hgb 14.2 (11.2-15.7) gm/dl Hct 41.2 (34.1-44.9) % MCV 87.1 (79.4-94.8) fl MCH 30.0 (25.6-32.2) pg MCHC 34.5 (32.2-35.5) g/dl RDW Std Deviation 46.3 (36.4-46.3) fL Plt Count 389 H (182-369) K/mm3 MPV 9.6 (9.4-12.3) fl Neut % (Auto) 66.9 (34.0-71.1) % Lymph % (Auto) 23.2 (19.3-51.7) % [place] % (Auto) 7.3 (4.7-12.5) % Eos % (Auto) 1.6 (0.7-5.8) Baso % (Auto) 1.0 (0.1-1.2) % Neut # (Auto) 7.42 H (1.56-6.13) K/mm3 Lymph # (Auto) 2.57 (1.18-3.74) K/mm3 [place] # (Auto) 0.81 H (0.24-0.36) K/mm3 Eos # (Auto) 0.18 (0.04-0.36) K/mm3 Baso # (Auto) 0.11 H (0.01-0.08) K/mm3 Manual Slide Review D-Dimer, Quantitative 1.15 H (0.19-0.50) mg/L Sodium 138 (136-145) mEq/L Potassium 3.8 (3.5-5.1) mEq/L Chloride 103 (98-107) mEq/L Carbon Dioxide 23 (21-32) mEq/L Anion Gap 15.8 H (5-15) BUN 10 (7-18) mg/dL Creatinine 0.7 (0.55-1.02) mg/dL Est Cr Clr Drug Dosing 127.08 mL/min Estimated GFR (MDRD) > 60 (>60) mL/min BUN/Creatinine Ratio 14.3 (14-18) Glucose 143 H (70-99) mg/dL Calcium 8.6 (8.5-10.1) mg/dL Total Bilirubin 0.4 (0.2-1.0) mg/dL AST 79 H (15-37) U/L ALT 181 H (14-59) U/L Alkaline Phosphatase 101 (46-116) U/L Total Protein 8.0 (6.4-8.2) g/dl Albumin 3.7 (3.4-5.0) g/dl Globulin 4.3 gm/dL Albumin/Globulin Ratio 0.9 L (1-2) HCG, Qual (NEGATIVE) 03/17/21 Range/Units 18:35 WBC (3.98-10.04) K/mm3 RBC (3.98-5.22) M/mm3 Hgb (11.2-15.7) gm/dl Hct (34.1-44.9) % MCV (79.4-94.8) fl MCH (25.6-32.2) pg MCHC (32.2-35.5) g/dl RDW Std Deviation (36.4-46.3) fL Plt Count (182-369) K/mm3 MPV (9.4-12.3) fl Neut % (Auto) (34.0-71.1) % Lymph % (Auto) (19.3-51.7) % [place] % (Auto) (4.7-12.5) % Eos % (Auto) (0.7-5.8) Baso % (Auto) (0.1-1.2) % Neut # (Auto) (1.56-6.13) K/mm3 Lymph # (Auto) (1.18-3.74) K/mm3 [place] # (Auto) (0.24-0.36) K/mm3 Eos # (Auto) (0.04-0.36) K/mm3 Baso # (Auto) (0.01-0.08) K/mm3 Manual Slide Review D-Dimer, Quantitative (0.19-0.50) mg/L Sodium (136-145) mEq/L Potassium (3.5-5.1) mEq/L Chloride (98-107) mEq/L Carbon Dioxide (21-32) mEq/L Anion Gap (5-15) BUN (7-18) mg/dL Creatinine (0.55-1.02) mg/dL Est Cr Clr Drug Dosing mL/min Estimated GFR (MDRD) (>60) mL/min BUN/Creatinine Ratio (14-18) Glucose (70-99) mg/dL Calcium (8.5-10.1) mg/dL Total Bilirubin (0.2-1.0) mg/dL AST (15-37) U/L ALT (14-59) U/L Alkaline Phosphatase (46-116) U/L Total Protein (6.4-8.2) g/dl Albumin (3.4-5.0) g/dl Globulin gm/dL Albumin/Globulin Ratio (1-2) HCG, Qual Negative (NEGATIVE) Meds: Medications Generic Name Dose Route Start Last Admin Trade Name Freq PRN Reason Stop Dose Admin Sodium Chloride 45 mls @ 40 mls/hr 03/17/21 20:00 03/17/21 20:23 Normal Saline IV 40 mls/hr ASDIRECTED SAILAJA Administration Sodium Chloride 10 ml 03/17/21 19:51 03/17/21 20:23 Sodium Chloride 0.9% 10 Ml Syringe FLUSH 10 ml ONETIME PRN Administration Keep Vein Open Discontinued Medications Generic Name Dose Route Start Last Admin Trade Name Rashawn PRN Reason Stop Dose Admin Iopamidol 100 ml 03/17/21 19:51 03/17/21 20:23 Iopamidol 755 Mg/Ml 100 Ml Bottle IVPUSH 03/17/21 19:52 100 ml ONETIME ONE Administration - Re-Assessments/Exams Free Text/Narrative Re-Assessment/Exam: 03/17/21 20:[address] Talbot for change of shift. I agree with his history and physical examination as documented. CT angiogram of the chest is read by [facility] as "Small area of parenchymal opacification in the right upper lobe otherwise unremarkable examination." 03/17/21 21:44 Test results discussed with the patient. As above, while the patient's D-dimer was modestly elevated, the CT angiogram of her chest was negative for a PE. Her chest pain appears to be musculoskeletal in etiology. She requested something for pain, therefore I have ordered 2 tablets of [place], but, going forward, I am recommending that she take OTC ibuprofen. Departure - Departure Time of Disposition: 21:46 Condition: Good Sepsis Event Note (ED) - Focused Exam Vital Signs: Vital Signs Temp Pulse Resp BP Pulse Ox 03/17/21 17:55 36.1 C 84 16 137/88 99 - My Orders Last 24 Hours: My Active Orders 03/17/21 21:44 Acetaminophen/HYDROcodone [[place] 325-5 MG] 2 tab PO ONETIME ONE - Assessment/Plan Last 24 Hours: My Active Orders 03/17/21 21:44 Acetaminophen/HYDROcodone [[place] 325-5 MG] 2 tab PO ONETIME ONE
[2021-03-17] MEDS ORDERED: Iopamidol 755 Mg/ML 100 ML Bottle IVPUSH ONE (19:51)
[2021-03-17] MEDS ORDERED: Sodium Chloride 0.9% 10 ML Syringe FLUSH PRN (19:51)
[2021-03-17] MEDS ORDERED: Sodium Chloride 0.9% 45 ML IV SCH (20:00)
[2021-03-17] MEDS ORDERED: Acetaminophen/HYDROcodone 325-5 MG Tab PO ONE (21:44)
--- NOTE | 2021-03-18 07:40 | CT ---
CT chest Technique: Multiple axial sections through the chest were obtained. Intravenous contrast was utilized. Study has been performed as a pulmonary angiogram protocol. Comparison: Prior chest x-ray performed earlier on same day (6:19 PM). Findings: Pulmonary arteries are fairly well opacified. No filling defects are seen to indicate pulmonary embolism. Thoracic aorta shows no aneurysm. Mediastinum and hilar regions show no adenopathy. Small portion of the visualized upper abdominal structures show no discrete abnormality. Lung window settings were reviewed. Minimal area of increased density is noted within the right upper lung next to the pleural margin. This is most likely due to a small area of scarring or atelectasis. Lungs otherwise are clear. Bone window settings were reviewed which show no acute osseous finding. Impression: 1. Minimal density within the right upper lung abutting the pleura. This is most likely due to a small area of scarring or atelectasis. 2. No findings of pulmonary embolism. Nothing acute is otherwise seen on CT study of the chest. Diagnostic code #2 I agree with preliminary report from [facility], finalized on 03/17/21, 9:45 PM CDT, code 1
== END 2021-03-17 22:00 | disposition home or self-care (01) ==
LOC: JD.ED 17:46
DX: R07.89 Other chest pain (principal); E66.9 Obesity, unspecified; Z68.29 Body mass index [BMI] 29.0-29.9, adult; Z91.030 Bee allergy status; Z91.018 Allergy to other foods; Z79.82 Long term (current) use of aspirin
CPT/HCPCS: 36415; 71045; 71275; 80053; 84703; 85025; 85379; 93005; 99285; A9270; Q9967; 93010; 99284

== ENCOUNTER 2021-10-27 12:12 | Emergency (ER) | payer MEDICAID, OTHER ==
[2021-10-27] MEDS ORDERED: Sodium Chloride 0.9% 10 ML Syringe FLUSH PRN (12:34)
[2021-10-27] MEDS ORDERED: Sodium Chloride 0.9% 1,000 ML IV STA (12:35)
[2021-10-27] MEDS ORDERED: Ondansetron 4 MG/2 ML SDV IVPUSH ONE (13:01)
[2021-10-27] MEDS ORDERED: HYDROmorphone 0.5 MG/0.5 ML Syringe IVPUSH ONE ×2 (13:01→14:31)
[2021-10-27] MEDS ORDERED: Ketorolac 30 MG/ML SDV IVPUSH ONE (14:31)
== END 2021-10-27 15:19 | disposition home or self-care (01) ==
LOC: JD.ED 12:12
DX: O20.9 Hemorrhage in early pregnancy, unspecified (principal); Z91.030 Bee allergy status; Z91.018 Allergy to other foods; Z79.82 Long term (current) use of aspirin; Z3A.11 11 weeks gestation of pregnancy
CPT/HCPCS: 36415; 76817; 80053; 84702; 85025; 86140; 86900; 86901; 96374; 96375; 96376; 99284; J1170; J1885; J2405; J7030; 99285

== ENCOUNTER 2022-04-08 13:57 | Emergency (ER) | payer MEDICAID, OTHER ==
[2022-04-08] MEDS ORDERED: Sodium Chloride 0.9% 10 ML Syringe FLUSH PRN ×2 (14:40→16:04)
[2022-04-08] MEDS ORDERED: Ketorolac 30 MG/ML SDV IVPUSH ONE ×2 (15:22→21:51)
[2022-04-08] MEDS ORDERED: Sodium Chloride 0.9% 1,000 ML IV STA (15:22)
[2022-04-08] MEDS ORDERED: HYDROmorphone 0.5 MG/0.5 ML Syringe IVPUSH ONE (15:22)
[2022-04-08] MEDS ORDERED: Cyclobenzaprine 10 MG Tab PO ONE (15:22)
[2022-04-08 15:44] LABS: ESTIMATED GFR 119 mL/min (>60)
[2022-04-08] MEDS ORDERED: Aspirin 81 MG Tab.Chew PO ONE (15:48)
[2022-04-08] MEDS ORDERED: Iopamidol 755 Mg/ML 100 ML Bottle IVPUSH ONE (16:04)
[2022-04-08] MEDS ORDERED: Sodium Chloride 0.9% 100 ML IV SCH (16:15)
[2022-04-08] MEDS: Nitroglycerin 0.4 MG Tab.SL SL PRN ×2 (16:58→17:14)
[2022-04-08] MEDS ORDERED: Heparin Sodium 5,000 Units/ML Vial IVPUSH ONE (17:26)
[2022-04-08] MEDS ORDERED: Heparin Sodium/D5W 25,000 UNITS/500 ML BAG IV SCH (17:30)
[2022-04-08] MEDS ORDERED: Morphine 2 MG/ML SYRINGE IVPUSH ONE (17:32)
[2022-04-08] MEDS ORDERED: Acetaminophen 325 MG Tab PO ONE (20:18)
== END 2022-04-08 22:24 | disposition home or self-care (01) ==
LOC: JD.ED 13:57
DX: R07.89 Other chest pain (principal); M54.50 Low back pain, unspecified; M54.6 Pain in thoracic spine; E66.9 Obesity, unspecified; Z68.32 Body mass index [BMI] 32.0-32.9, adult; Z91.030 Bee allergy status; Z91.018 Allergy to other foods; Z79.82 Long term (current) use of aspirin; Z20.822 Contact with and (suspected) exposure to COVID-19
CPT/HCPCS: 36415; 71260; 74177; 80053; 81001; 84484; 84703; 85025; 85379; 85610; 85730; 86140; 87635; 93005; 96361; 96365; 96375; 96376; 99285; A9270; J1170; J1644; J1885; J2270; J3490; J7030; Q9967; 93010; 99284; U0002

== ENCOUNTER 2022-07-01 08:56 | Emergency (ER) | payer BC, MEDICAID ==
[2022-07-01] MEDS ORDERED: Sodium Chloride 0.9% 10 ML Syringe FLUSH PRN ×2 (09:13→14:12)
[2022-07-01] MEDS ORDERED: Morphine 4 MG/ML Syringe IVPUSH ONE (09:35)
[2022-07-01] MEDS ORDERED: Morphine 2 MG/ML SYRINGE IVPUSH ONE (10:24)
[2022-07-01] MEDS ORDERED: Aspirin 81 MG Tab.Chew PO ONE (10:58)
[2022-07-01] MEDS ORDERED: fentaNYL 100 MCG/2 ML SDV IVPUSH ONE (13:57)
[2022-07-01] MEDS ORDERED: Iopamidol 755 Mg/ML 100 ML Bottle IVPUSH ONE (14:12)
[2022-07-01] MEDS ORDERED: Sodium Chloride 0.9% 100 ML IV SCH (14:15)
== END 2022-07-01 16:50 | disposition home or self-care (01) ==
LOC: JD.ED 08:56
DX: S93.401A Sprain of unspecified ligament of right ankle, initial encounter (principal); R55 Syncope and collapse; E66.9 Obesity, unspecified; Z68.24 Body mass index [BMI] 24.0-24.9, adult; Z91.030 Bee allergy status; Z91.018 Allergy to other foods; Z79.82 Long term (current) use of aspirin; W19.XXXA Unspecified fall, initial encounter
CPT/HCPCS: 36415; 70450; 71045; 71275; 72100; 73590; 73610; 80053; 81001; 84484; 84703; 85025; 85379; 85610; 85730; 87086; 87088; 87186; 93005; 93246; 96374; 96375; 96376; 99285; A9270; J2270; J3010; J3490; Q9967; 93010; 99284

== ENCOUNTER 2022-11-17 12:50 | Emergency (ER) | payer MEDICAID, BC ==
[2022-11-17] MEDS ORDERED: Sodium Chloride 0.9% 10 ML Syringe FLUSH PRN (13:34)
[2022-11-17] MEDS ORDERED: Ondansetron 4 MG/2 ML SDV IVPUSH ONE (13:35)
[2022-11-17] MEDS ORDERED: Sodium Chloride 0.9% 1,000 ML IV SCH (13:45)
[2022-11-17] MEDS ORDERED: Ketorolac 30 MG/ML SDV IVPUSH ONE (14:44)
[2022-11-17] MEDS ORDERED: Acetaminophen/HYDROcodone 325-5 MG Tab PO ONE (14:44)
== END 2022-11-17 16:23 | disposition home or self-care (01) ==
LOC: JD.ED 12:50
DX: R07.89 Other chest pain (principal); E66.9 Obesity, unspecified; Z68.32 Body mass index [BMI] 32.0-32.9, adult; Z91.030 Bee allergy status; Z91.018 Allergy to other foods; Z79.82 Long term (current) use of aspirin
CPT/HCPCS: 36415; 80053; 84702; 85025; 85379; 93005; 96361; 96374; 96375; 99285; A9270; J1885; J2405; J3490; J7030; 93010; 99284

== ENCOUNTER 2023-03-07 14:05 | Emergency (ER) | payer BC, MEDICAID ==
[2023-03-07] MEDS ORDERED: EPINEPHrine 1 MG/ML SDV IM ONE (14:12)
[2023-03-07] MEDS ORDERED: Albuterol/Ipratropium 3.0-0.5 MG/3 ML Neb Soln NEB ONE ×2 (14:24→16:46)
[2023-03-07] MEDS ORDERED: predniSONE 20 MG Tab PO ONE (15:17)
[2023-03-07] MEDS ORDERED: diphenhydrAMINE 50 MG Cap PO ONE (15:17)
[2023-03-07 16:10] LABS: BASOPHILS ABSOLUTE AUTO 0.07 K/mm3 (0.01-0.08); BASOPHILS PERCENT AUTO 0.7 % (0.1-1.2); EOSINOPHILS ABSOLUTE AUTO 0.11 K/mm3 (0.04-0.36); EOSINOPHILS PERCENT AUTO 1.1 (0.7-5.8); HEMATOCRIT 41.5 % (34.1-44.9); HEMOGLOBIN 13.8 gm/dl (11.2-15.7); IMMATURE GRAN ABSOLUTE AUTO 0.05 K/mm3 (0.00-0.10); IMMATURE GRAN PERCENT AUTO 0.5 % (<=1.0); LYMPHOCYTES ABSOLUTE AUTO 2.77 K/mm3 (1.18-3.74); LYMPHOCYTES PERCENT AUTO 26.8 % (19.3-51.7); MEAN CORPUSCULAR HEMOGLOBIN 29.5 pg (25.6-32.2); MEAN CORPUSCULAR HGB CONC 33.3 g/dl (32.2-35.5); MEAN CORPUSCULAR VOLUME 88.7 fl (79.4-94.8); MEAN PLATELET VOLUME 9.4 fl (9.4-12.3); MONOCYTES ABSOLUTE AUTO 0.76 K/mm3 (0.24-0.36); MONOCYTES PERCENT AUTO 7.4 % (4.7-12.5); NEUTROPHILS ABSOLUTE AUTO 6.57 K/mm3 (1.56-6.13); NEUTROPHILS PERCENT AUTO 63.5 % (34.0-71.1); PLATELET COUNT,PLT 445 K/mm3 (182-369); RED BLOOD CELL COUNT 4.68 M/mm3 (3.98-5.22); WHITE BLOOD CELL COUNT,WBC 10.33 K/mm3 (3.98-10.04)
[2023-03-07 16:37] LABS: A/G RATIO 0.7 (1-2); ALBUMIN 3.6 g/dl (3.4-5.0); ANION GAP 13.8 (5-15); BILIRUBIN TOTAL 0.3 mg/dL (0.2-1.0); BUN/CREATININE RATIO 16.3 (14-18); C-REACTIVE PROTEIN 0.5 mg/dL (<1.0); CALCIUM 8.7 mg/dL (8.5-10.1); CREATININE 0.8 mg/dL (0.55-1.02); EST CRCL DRUG DOSING (CG) 109.17 mL/min; POTASSIUM,K 3.8 mEq/L (3.5-5.1); PROTEIN TOTAL,TP 8.7 g/dl (6.4-8.2)
[2023-03-07] MEDS ORDERED: Albuterol 6.7 GM Inhaler INH ONE (16:46)
[2023-03-07] MEDS ORDERED: EPINEPHrine 0.3 MG/0.3 ML Pen Autoinjector IM ONE (16:46)
[2023-03-07 17:06] LABS: SLIDE REVIEW ABNORMAL SMEAR
== END 2023-03-07 16:30 | disposition home or self-care (01) ==
LOC: JD.ED 14:05
DX: L50.0 Allergic urticaria (principal); E66.9 Obesity, unspecified; Z68.32 Body mass index [BMI] 32.0-32.9, adult; Z91.018 Allergy to other foods; Z91.030 Bee allergy status; Z79.82 Long term (current) use of aspirin
CPT/HCPCS: 36415; 71045; 80053; 85025; 86140; 94640; 96372; 99285; A9270; J0171; J7512; Q0163; 99284; J7620-GY

== ENCOUNTER 2023-09-30 17:45 | Emergency (ER) | payer BC, MEDICAID ==
[2023-09-30] MEDS ORDERED: Sodium Chloride 0.9% 10 ML Syringe FLUSH PRN (18:07)
[2023-09-30 18:26] LABS: BASOPHILS ABSOLUTE AUTO 0.1 K/mm3 (0.0-0.2); BASOPHILS PERCENT AUTO 1.3 % (0.0-1.0); EOSINOPHILS ABSOLUTE AUTO 0.2 K/mm3 (0.0-0.4); EOSINOPHILS PERCENT AUTO 1.7 % (0.0-6.0); HEMATOCRIT 41.7 % (37.0-47.0); HEMOGLOBIN 14.2 gm/dl (12.0-16.0); IMMATURE GRAN ABSOLUTE AUTO 0.04 K/mm3 (0.00-0.05); IMMATURE GRAN PERCENT AUTO 0.4 % (0.0-0.4); LYMPHOCYTES ABSOLUTE AUTO 2.4 K/mm3 (1.0-4.8); LYMPHOCYTES PERCENT AUTO 25.1 % (24.0-44.0); MEAN CORPUSCULAR HEMOGLOBIN 30.1 pg (28.0-32.0); MEAN CORPUSCULAR HGB CONC 34.1 g/dl (32.0-36.0); MEAN CORPUSCULAR VOLUME 88.3 fl (83.0-99.0); MEAN PLATELET VOLUME 9.5 fl (9.4-12.3); MONOCYTES ABSOLUTE AUTO 0.6 K/mm3 (0.0-0.8); MONOCYTES PERCENT AUTO 6.7 % (0.0-8.0); NEUTROPHILS ABSOLUTE AUTO 6.1 K/mm3 (1.8-7.7); NEUTROPHILS PERCENT AUTO 64.8 % (41.0-71.0); PLATELET COUNT,PLT 368 K/mm3 (150-400); RED BLOOD CELL COUNT 4.72 M/mm3 (4.10-5.30); WHITE BLOOD CELL COUNT,WBC 9.36 K/mm3 (3.9-11.3)
[2023-09-30] MEDS: HYDROmorphone 0.5 MG/0.5 ML Syringe IVPUSH ONE (18:28)
[2023-09-30] MEDS: Sodium Chloride 0.9% 1,000 ML IV SCH (18:28)
[2023-09-30] MEDS: Ondansetron 4 MG/2 ML SDV ONE (18:36)
[2023-09-30] MEDS: Ondansetron 4 MG/2 ML SDV IVPUSH STA (18:40)
[2023-09-30 18:48] LABS: A/G RATIO 0.7 (1-2); ALBUMIN 3.6 g/dl (3.4-5.0); ANION GAP 12.2 (5-15); BILIRUBIN TOTAL 0.4 mg/dL (0.2-1.0); BUN/CREATININE RATIO 12.5 (14-18); C-REACTIVE PROTEIN 1.6 mg/dL (<1.0); CALCIUM 8.8 mg/dL (8.5-10.1); CREATININE 0.8 mg/dL (0.55-1.02); EST CRCL DRUG DOSING (CG) 108.16 mL/min; MAGNESIUM 1.5 mg/dL (1.8-2.4); POTASSIUM,K 4.2 mEq/L (3.5-5.1); PROTEIN TOTAL,TP 8.6 g/dl (6.4-8.2)
[2023-09-30] MEDS: Sodium Chloride 0.9% 10 ML Syringe FLUSH ONE (18:49)
[2023-09-30] MEDS: Iopamidol 755 Mg/ML 100 ML Bottle IVPUSH ONE (18:49)
[2023-09-30] MEDS: Sodium Chloride 0.9% 100 ML IV SCH (18:49)
[2023-09-30 19:15] LABS: CORONAVIRUS COVID-19 NAA NEGATIVE (NEGATIVE); INFLUENZA A NAA NEGATIVE (NEGATIVE); RESPIRATORY SYNCYTIAL VIR NAA NEGATIVE (NEGATIVE)
[2023-09-30 19:25] LABS: HEMOGLOBIN A1C 7.9 %
[2023-09-30] MEDS: Morphine 2 MG/ML SYRINGE IVPUSH ONE (19:54)
[2023-09-30 19:57] LABS: BASE EXCESS ARTERIAL -1.5 (-2-2.0); BICARBONATE,ARTERIAL 23.3 meq/L (22.0-26.0); O2 SATURATION ARTERIAL 97.1 % (96.0-97.0); PCO2 ARTERIAL 41.5 mmHg (35.0-45.0)
[2023-09-30] MEDS: Ondansetron 4 MG/2 ML SDV IVPUSH ONE (20:11)
[2023-09-30] MEDS: Insulin Regular, Human 100 Units/ML 3 ML Vial IV ONE (20:38)
== END 2023-09-30 22:08 | disposition home or self-care (01) ==
LOC: JD.ED 17:45
DX: R07.89 Other chest pain (principal); R55 Syncope and collapse; E11.9 Type 2 diabetes mellitus without complications; J45.909 Unspecified asthma, uncomplicated; Z79.84 Long term (current) use of oral hypoglycemic drugs; Z79.82 Long term (current) use of aspirin; Z79.899 Other long term (current) drug therapy; Z91.018 Allergy to other foods; Z91.030 Bee allergy status
CPT/HCPCS: 0241U; 36415; 36600; 70450; 71275; 80053; 81003; 82803; 82947; 83036; 83690; 83735; 83880; 83930; 84484; 85025; 86140; 93005; 96361; 96374; 96375; 96376; 99285; J1170; J1815; J2270; J2405; J3490; J7030; Q9967

== ENCOUNTER 2023-11-26 20:45 | Emergency (ER) | payer BC, MEDICAID ==
[2023-11-26 21:23] LABS: BASOPHILS ABSOLUTE AUTO 0.1 K/mm3 (0.0-0.2); BASOPHILS PERCENT AUTO 1.1 % (0.0-1.0); EOSINOPHILS ABSOLUTE AUTO 0.1 K/mm3 (0.0-0.4); EOSINOPHILS PERCENT AUTO 1.5 % (0.0-6.0); IMMATURE GRAN ABSOLUTE AUTO 0.03 K/mm3 (0.00-0.05); IMMATURE GRAN PERCENT AUTO 0.3 % (0.0-0.4); LYMPHOCYTES ABSOLUTE AUTO 2.5 K/mm3 (1.0-4.8); LYMPHOCYTES PERCENT AUTO 28.1 % (24.0-44.0); MEAN CORPUSCULAR HEMOGLOBIN 29.5 pg (28.0-32.0); MEAN CORPUSCULAR HGB CONC 33.3 g/dl (32.0-36.0); MEAN CORPUSCULAR VOLUME 88.6 fl (83.0-99.0); MEAN PLATELET VOLUME 9.4 fl (9.4-12.3); MONOCYTES ABSOLUTE AUTO 0.6 K/mm3 (0.0-0.8); MONOCYTES PERCENT AUTO 6.5 % (0.0-8.0); NEUTROPHILS ABSOLUTE AUTO 5.5 K/mm3 (1.8-7.7); NEUTROPHILS PERCENT AUTO 62.5 % (41.0-71.0); PLATELET COUNT,PLT 391 K/mm3 (150-400); RED BLOOD CELL COUNT 4.74 M/mm3 (4.10-5.30); WHITE BLOOD CELL COUNT,WBC 8.81 K/mm3 (3.9-11.3)
[2023-11-26 21:37] LABS: BILIRUBIN,URINE NEGATIVE (Negative); COLOR,URINE YELLOW (Yellow); GLUCOSE,URINE 2+ (Negative); KETONES,URINE TRACE (Negative); LEUKOCYTE ESTERASE,URINE TRACE (Negative); NITRITE,URINE NEGATIVE (Negative); OCCULT BLOOD,URINE TRACE-INTACT (Negative); PROTEIN,URINE NEGATIVE (Negative); UROBILINOGEN,URINE 0.2 (0.2-1.0)
[2023-11-26] MEDS: Sodium Chloride 0.9% 10 ML Syringe FLUSH PRN (21:42)
[2023-11-26 21:47] LABS: AMPHETAMINES SCREEN, URINE NEGATIVE (CUTOFF=500); BARBITURATE SCREEN,URINE NEGATIVE (CUTOFF=200); BENZODIAZEPINES SCREEN,URINE NEGATIVE (CUTOFF=150); BUPRENORPHINE SCREEN,URINE NEGATIVE (CUTOFF=10); METHADONE SCREEN, URINE NEGATIVE (CUTOFF=200); METHAMPHETAMINES SCREEN, URINE NEGATIVE (CUTOFF=500); OXYCODONE SCREEN,URINE NEGATIVE (CUT0FF=100); THC SCREEN,URINE 20 NG/ML NEGATIVE (CUTOFF=50)
[2023-11-26 21:50] LABS: A/G RATIO 0.8 (1-2); ALBUMIN 3.6 g/dl (3.4-5.0); ANION GAP 13.8 (5-15); BILIRUBIN TOTAL 0.5 mg/dL (0.2-1.0); CALCIUM 8.4 mg/dL (8.5-10.1); CREATININE 0.8 mg/dL (0.55-1.02); POTASSIUM,K 3.8 mEq/L (3.5-5.1); PROTEIN TOTAL,TP 8.4 g/dl (6.4-8.2)
[2023-11-26 22:35] LABS: APPEARANCE,URINE SLT CLOUDY (Clear); BACTERIA,URINE MODERATE /hpf (FEW); MUCUS,URINE FEW /hpf (FEW)
== END 2023-11-26 23:50 | disposition home or self-care (01) ==
LOC: JD.ED 20:45
DX: E11.65 Type 2 diabetes mellitus with hyperglycemia (principal); R74.01 Elevation of levels of liver transaminase levels; R51.9 Headache, unspecified; R06.02 Shortness of breath; Z91.018 Allergy to other foods; Z91.030 Bee allergy status; Z79.82 Long term (current) use of aspirin; Z79.899 Other long term (current) drug therapy; Z86.19 Personal history of other infectious and parasitic diseases
CPT/HCPCS: 36415; 70450; 80053; 80306; 81001; 81025; 83605; 85025; 85379; 99284; J3490

== ENCOUNTER 2024-02-07 15:52 | Emergency (ER) | payer BC, MEDICAID ==
[2024-02-07 16:43] LABS: BASOPHILS ABSOLUTE AUTO 0.1 K/mm3 (0.0-0.2); BASOPHILS PERCENT AUTO 1.1 % (0.0-1.0); EOSINOPHILS ABSOLUTE AUTO 0.1 K/mm3 (0.0-0.4); EOSINOPHILS PERCENT AUTO 1.3 % (0.0-6.0); HEMATOCRIT 42.2 % (37.0-47.0); HEMOGLOBIN 14.2 gm/dl (12.0-16.0); IMMATURE GRAN ABSOLUTE AUTO 0.03 K/mm3 (0.00-0.05); IMMATURE GRAN PERCENT AUTO 0.3 % (0.0-0.4); LYMPHOCYTES ABSOLUTE AUTO 2.5 K/mm3 (1.0-4.8); LYMPHOCYTES PERCENT AUTO 25.4 % (24.0-44.0); MEAN CORPUSCULAR HEMOGLOBIN 29.5 pg (28.0-32.0); MEAN CORPUSCULAR HGB CONC 33.6 g/dl (32.0-36.0); MEAN CORPUSCULAR VOLUME 87.7 fl (83.0-99.0); MEAN PLATELET VOLUME 9.3 fl (9.4-12.3); MONOCYTES ABSOLUTE AUTO 0.8 K/mm3 (0.0-0.8); MONOCYTES PERCENT AUTO 7.7 % (0.0-8.0); NEUTROPHILS ABSOLUTE AUTO 6.3 K/mm3 (1.8-7.7); NEUTROPHILS PERCENT AUTO 64.2 % (41.0-71.0); PLATELET COUNT,PLT 385 K/mm3 (150-400); RED BLOOD CELL COUNT 4.81 M/mm3 (4.10-5.30); WHITE BLOOD CELL COUNT,WBC 9.83 K/mm3 (3.9-11.3)
[2024-02-07 17:04] LABS: INR 0.99; PROTHROMBIN TIME 10.6 SECONDS (9.7-12.0)
[2024-02-07 17:05] LABS: PTT,PARTIAL THROMBOPLSTIN TIME 27.1 SECONDS (21.7-31.4)
[2024-02-07 17:16] LABS: D-DIMER QUANTITATIVE 0.67 mg/L (0.19-0.50)
[2024-02-07 17:20] LABS: LACTIC ACID 1.6 mmol/L (0.4-2.0)
[2024-02-07 17:23] LABS: A/G RATIO 0.8 (1-2); ALBUMIN 3.6 g/dl (3.4-5.0); ANION GAP 15.9 (5-15); BILIRUBIN TOTAL 0.6 mg/dL (0.2-1.0); BUN/CREATININE RATIO 14.3 (14-18); CALCIUM 8.5 mg/dL (8.5-10.1); CREATININE 0.7 mg/dL (0.55-1.02); EST CRCL DRUG DOSING (CG) 123.61 mL/min; MAGNESIUM 1.9 mg/dL (1.8-2.4); POTASSIUM,K 3.9 mEq/L (3.5-5.1); PROTEIN TOTAL,TP 8.2 g/dl (6.4-8.2)
[2024-02-07] MEDS ORDERED: Sodium Chloride 0.9% 100 ML IV SCH ×2 (18:15→20:00)
[2024-02-07] MEDS: Iopamidol 755 Mg/ML 100 ML Bottle IVPUSH ONE ×2 (18:38→20:10)
[2024-02-07] MEDS: Ketorolac 30 MG/ML SDV IVPUSH ONE (18:55)
[2024-02-07] MEDS: Sodium Chloride 0.9% 1,000 ML IV SCH (18:55)
[2024-02-07] MEDS: Albuterol 6.7 GM Inhaler INH ONE (21:43)
== END 2024-02-07 22:10 | disposition home or self-care (01) ==
LOC: JD.ED 15:52
DX: G50.0 Trigeminal neuralgia (principal); R07.9 Chest pain, unspecified; J45.909 Unspecified asthma, uncomplicated; I10 Essential (primary) hypertension; Z79.82 Long term (current) use of aspirin; Z79.899 Other long term (current) drug therapy; Z79.84 Long term (current) use of oral hypoglycemic drugs; E03.9 Hypothyroidism, unspecified; Z91.018 Allergy to other foods; Z91.030 Bee allergy status
CPT/HCPCS: 36415; 70450; 70496; 70498; 71045; 71275; 72040; 80053; 83605; 83735; 83880; 84484; 85025; 85379; 85610; 85730; 86140; 93005; 94640; 96361; 96374; 99285; A9270; J1885; J7030; Q9967

== ENCOUNTER 2024-06-02 15:58 | Inpatient (IN) | payer BC, MEDICAID ==
[2024-06-02 16:51] LABS: BASOPHILS ABSOLUTE AUTO 0.1 K/mm3 (0.0-0.2); BASOPHILS PERCENT AUTO 0.4 % (0.0-1.0); EOSINOPHILS PERCENT AUTO 0.1 % (0.0-6.0); HEMATOCRIT 42.5 % (37.0-47.0); HEMOGLOBIN 14.2 gm/dl (12.0-16.0); IMMATURE GRAN ABSOLUTE AUTO 0.07 K/mm3 (0.00-0.05); IMMATURE GRAN PERCENT AUTO 0.5 % (0.0-0.4); LYMPHOCYTES ABSOLUTE AUTO 0.5 K/mm3 (1.0-4.8); LYMPHOCYTES PERCENT AUTO 3.7 % (24.0-44.0); MEAN CORPUSCULAR HEMOGLOBIN 29.3 pg (28.0-32.0); MEAN CORPUSCULAR HGB CONC 33.4 g/dl (32.0-36.0); MEAN CORPUSCULAR VOLUME 87.8 fl (83.0-99.0); MEAN PLATELET VOLUME 9.7 fl (9.4-12.3); MONOCYTES ABSOLUTE AUTO 0.2 K/mm3 (0.0-0.8); MONOCYTES PERCENT AUTO 1.4 % (0.0-8.0); NEUTROPHILS ABSOLUTE AUTO 12.6 K/mm3 (1.8-7.7); NEUTROPHILS PERCENT AUTO 93.9 % (41.0-71.0); PLATELET COUNT,PLT 337 K/mm3 (150-400); RED BLOOD CELL COUNT 4.84 M/mm3 (4.10-5.30); WHITE BLOOD CELL COUNT,WBC 13.38 K/mm3 (3.9-11.3)
[2024-06-02 17:12] LABS: A/G RATIO 0.8 (1-2); ALBUMIN 3.7 g/dl (3.4-5.0); ANION GAP 17.6 (5-15); BILIRUBIN TOTAL 1.3 mg/dL (0.2-1.0); C-REACTIVE PROTEIN 4.87 mg/dL (<0.30); CALCIUM 8.6 mg/dL (8.5-10.1); CREATININE 0.9 mg/dL (0.55-1.02); EST CRCL DRUG DOSING (CG) 96.14 mL/min; POTASSIUM,K 3.6 mEq/L (3.5-5.1); PROTEIN TOTAL,TP 8.5 g/dl (6.4-8.2)
[2024-06-02] MEDS ORDERED: Naloxone 0.4 MG/ML SDV IVPUSH PRN (17:19)
[2024-06-02] MEDS: Sodium Chloride 0.9% 1,000 ML IV ONE ×3 (17:27→21:49)
[2024-06-02] MEDS: fentaNYL 100 MCG/2 ML SDV IVPUSH ONE (17:28)
[2024-06-02] MEDS: Albuterol/Ipratropium 3.0-0.5 MG/3 ML Neb Soln NEB ONE (18:11)
[2024-06-02] MEDS: cefTRIAXone 2 GM in Sodium Chloride 0.9% 100 ML IV ONE (18:19)
[2024-06-02] MEDS ORDERED: Polyethylene Glycol 3350 Powder 17 GM Packet PO PRN (18:58)
[2024-06-02] MEDS ORDERED: Acetaminophen 325 MG Tab PO PRN (18:58)
[2024-06-02] MEDS: Acetaminophen 325 MG Tab PO ONE (19:02)
[2024-06-02] MEDS: Azithromycin 500 MG in Sodium Chloride 0.9% 250 ML IV ONE (19:02)
[2024-06-02] MEDS ORDERED: 50% Dextrose in Water 50 ML Syringe IVPUSH PRN (19:10)
[2024-06-02 19:47] LABS: HEMOGLOBIN A1C 8.5 %
[2024-06-02 20:24] LABS: LACTIC ACID 2.8 mmol/L (0.4-2.0)
[2024-06-02] MEDS: Albuterol/Ipratropium 3.0-0.5 MG/3 ML Neb Soln NEB SCH (21:06)
[2024-06-02] MEDS: Insulin Lispro 100 Unit/ML 3 ML KwikPen SUBCUT SCH (21:50)
[2024-06-02] MEDS: Melatonin 3 MG Tab PO SCH (21:53)
[2024-06-02] MEDS: carBAMazepine 100 MG Tab.Chew PO ONE (21:53)
[2024-06-02] MEDS: methylPREDNISolone Sodium Succinate 40 MG/1 ML SDV IVPUSH SCH (21:59)
[2024-06-02] MEDS: Morphine 2 MG/ML SYRINGE IVPUSH PRN (22:41)
[2024-06-02] MEDS: Ondansetron 4 MG/2 ML SDV IV PRN (22:46)
[2024-06-02 23:32] LABS: APPEARANCE,URINE CLEAR (Clear); BILIRUBIN,URINE NEGATIVE (Negative); COLOR,URINE YELLOW (Yellow); GLUCOSE,URINE 2+ (Negative); KETONES,URINE TRACE (Negative); LEUKOCYTE ESTERASE,URINE NEGATIVE (Negative); NITRITE,URINE NEGATIVE (Negative); OCCULT BLOOD,URINE TRACE-INTACT (Negative); PROTEIN,URINE NEGATIVE (Negative); UROBILINOGEN,URINE 0.2 (0.2-1.0)
[2024-06-02] MEDS: Sodium Chloride 0.9% 1,000 ML IV SCH (23:33)
[2024-06-02 23:42] LABS: BACTERIA,URINE MODERATE /hpf (FEW); MUCUS,URINE NOT SEEN /hpf (FEW); RBC,URINE 0-5 /hpf (0-5); SQUAMOUS EPITHELIAL CELLS,UR 0-5 /hpf (0-5)
[2024-06-03 01:47] LABS: BASOPHILS ABSOLUTE AUTO 0.1 K/mm3 (0.0-0.2); BASOPHILS PERCENT AUTO 0.3 % (0.0-1.0); EOSINOPHILS ABSOLUTE AUTO 0.1 K/mm3 (0.0-0.4); EOSINOPHILS PERCENT AUTO 0.3 % (0.0-6.0); HEMATOCRIT 38.7 % (37.0-47.0); IMMATURE GRAN ABSOLUTE AUTO 0.07 K/mm3 (0.00-0.05); IMMATURE GRAN PERCENT AUTO 0.5 % (0.0-0.4); LYMPHOCYTES ABSOLUTE AUTO 0.4 K/mm3 (1.0-4.8); MEAN CORPUSCULAR HEMOGLOBIN 29.7 pg (28.0-32.0); MEAN CORPUSCULAR HGB CONC 33.6 g/dl (32.0-36.0); MEAN CORPUSCULAR VOLUME 88.4 fl (83.0-99.0); MEAN PLATELET VOLUME 9.7 fl (9.4-12.3); MONOCYTES ABSOLUTE AUTO 0.4 K/mm3 (0.0-0.8); MONOCYTES PERCENT AUTO 2.4 % (0.0-8.0); NEUTROPHILS ABSOLUTE AUTO 13.9 K/mm3 (1.8-7.7); NEUTROPHILS PERCENT AUTO 93.5 % (41.0-71.0); PLATELET COUNT,PLT 289 K/mm3 (150-400); RED BLOOD CELL COUNT 4.38 M/mm3 (4.10-5.30); WHITE BLOOD CELL COUNT,WBC 14.84 K/mm3 (3.9-11.3)
[2024-06-03 02:31] LABS: A/G RATIO 0.7 (1-2); ALBUMIN 3.1 g/dl (3.4-5.0); ANION GAP 14.9 (5-15); BUN/CREATININE RATIO 11.7 (14-18); C-REACTIVE PROTEIN 9.36 mg/dL (<0.30); CALCIUM 8.1 mg/dL (8.5-10.1); CREATININE 0.6 mg/dL (0.55-1.02); EST CRCL DRUG DOSING (CG) 144.21 mL/min; POTASSIUM,K 3.9 mEq/L (3.5-5.1); PROTEIN TOTAL,TP 7.7 g/dl (6.4-8.2)
[2024-06-03] MEDS: Iopamidol 612 MG/ML 100 ML Bottle IVPUSH ONE (08:12)
[2024-06-03] MEDS: Enoxaparin 40 MG/0.4 ML Syringe SUBCUT SCH (08:25)
[2024-06-03] MEDS: Insulin Lispro 100 Unit/ML 3 ML KwikPen SUBCUT ONE (08:25)
[2024-06-03] MEDS: carBAMazepine 200 MG Tab PO SCH (09:37)
[2024-06-03] MEDS: Insulin Lispro 100 Unit/ML 3 ML KwikPen SUBCUT SCH (11:01)
[2024-06-03] MEDS: Sodium Chloride 0.9% 100 ML IV SCH (11:04)
[2024-06-03] MEDS: Iopamidol 755 Mg/ML 100 ML Bottle IVPUSH ONE (11:05)
[2024-06-03] MEDS: cefTRIAXone 2 GM in Sodium Chloride 0.9% 100 ML IV SCH (17:30)
[2024-06-03] MEDS: Azithromycin 500 MG in Sodium Chloride 0.9% 250 ML IV SCH (17:31)
[2024-06-03] MEDS: Albuterol/Ipratropium 3.0-0.5 MG/3 ML Neb Soln NEB PRN (19:44)
[2024-06-04 05:23] LABS: BASOPHILS PERCENT AUTO 0.2 % (0.0-1.0); HEMATOCRIT 37.8 % (37.0-47.0); HEMOGLOBIN 12.4 gm/dl (12.0-16.0); IMMATURE GRAN ABSOLUTE AUTO 0.21 K/mm3 (0.00-0.05); IMMATURE GRAN PERCENT AUTO 0.9 % (0.0-0.4); LYMPHOCYTES ABSOLUTE AUTO 0.8 K/mm3 (1.0-4.8); LYMPHOCYTES PERCENT AUTO 3.7 % (24.0-44.0); MEAN CORPUSCULAR HEMOGLOBIN 29.1 pg (28.0-32.0); MEAN CORPUSCULAR HGB CONC 32.8 g/dl (32.0-36.0); MEAN CORPUSCULAR VOLUME 88.7 fl (83.0-99.0); MEAN PLATELET VOLUME 9.8 fl (9.4-12.3); MONOCYTES ABSOLUTE AUTO 0.5 K/mm3 (0.0-0.8); MONOCYTES PERCENT AUTO 2.2 % (0.0-8.0); NEUTROPHILS ABSOLUTE AUTO 20.9 K/mm3 (1.8-7.7); PLATELET COUNT,PLT 327 K/mm3 (150-400); RED BLOOD CELL COUNT 4.26 M/mm3 (4.10-5.30); WHITE BLOOD CELL COUNT,WBC 22.51 K/mm3 (3.9-11.3)
[2024-06-04 06:01] LABS: A/G RATIO 0.7 (1-2); ALBUMIN 3.2 g/dl (3.4-5.0); ANION GAP 17.3 (5-15); BILIRUBIN TOTAL 0.4 mg/dL (0.2-1.0); BUN/CREATININE RATIO 18.6 (14-18); C-REACTIVE PROTEIN 9.66 mg/dL (<0.30); CALCIUM 8.8 mg/dL (8.5-10.1); CREATININE 0.7 mg/dL (0.55-1.02); EST CRCL DRUG DOSING (CG) 123.61 mL/min; POTASSIUM,K 4.3 mEq/L (3.5-5.1)
[2024-06-04 06:07] LABS: SLIDE REVIEW ABNORMAL SMEAR
[2024-06-04] MEDS: Insulin Lispro 100 Unit/ML 3 ML KwikPen SUBCUT ONE ×5 (11:06→21:33)
[2024-06-04] MEDS: oxyCODONE 5 MG Tab PO PRN (11:55)
[2024-06-04] MEDS: Iopamidol 612 MG/ML 100 ML Bottle IVPUSH ONE (13:32)
[2024-06-04] MEDS: Sodium Chloride 0.9% 10 ML Syringe FLUSH ONE (13:32)
[2024-06-04 14:28] LABS: O2 SATURATION VENOUS 96.6; PH,VENOUS 7.36 (7.30-7.40)
[2024-06-04 14:29] LABS: BASE EXCESS VENOUS -5.6 (-4.0-2.0); BICARBONATE,VENOUS 18.4 meq/L (22-26)
[2024-06-04 14:42] LABS: ANION GAP 15.7 (5-15); BUN/CREATININE RATIO 23.8 (14-18); CALCIUM 8.8 mg/dL (8.5-10.1); CREATININE 0.8 mg/dL (0.55-1.02); EST CRCL DRUG DOSING (CG) 108.16 mL/min; POTASSIUM,K 3.7 mEq/L (3.5-5.1)
[2024-06-04] MEDS: Insulin Lispro 100 Unit/ML 3 ML KwikPen SUBCUT SCH (17:22)
[2024-06-05 05:25] LABS: BASOPHILS PERCENT AUTO 0.1 % (0.0-1.0); EOSINOPHILS PERCENT AUTO 0.1 % (0.0-6.0); HEMATOCRIT 37.7 % (37.0-47.0); HEMOGLOBIN 12.5 gm/dl (12.0-16.0); IMMATURE GRAN ABSOLUTE AUTO 0.12 K/mm3 (0.00-0.05); IMMATURE GRAN PERCENT AUTO 0.7 % (0.0-0.4); LYMPHOCYTES ABSOLUTE AUTO 2.8 K/mm3 (1.0-4.8); LYMPHOCYTES PERCENT AUTO 16.2 % (24.0-44.0); MEAN CORPUSCULAR HEMOGLOBIN 28.9 pg (28.0-32.0); MEAN CORPUSCULAR HGB CONC 33.2 g/dl (32.0-36.0); MEAN CORPUSCULAR VOLUME 87.3 fl (83.0-99.0); MEAN PLATELET VOLUME 9.9 fl (9.4-12.3); MONOCYTES ABSOLUTE AUTO 0.9 K/mm3 (0.0-0.8); MONOCYTES PERCENT AUTO 5.3 % (0.0-8.0); NEUTROPHILS ABSOLUTE AUTO 13.2 K/mm3 (1.8-7.7); NEUTROPHILS PERCENT AUTO 77.6 % (41.0-71.0); PLATELET COUNT,PLT 337 K/mm3 (150-400); RED BLOOD CELL COUNT 4.32 M/mm3 (4.10-5.30); WHITE BLOOD CELL COUNT,WBC 17.01 K/mm3 (3.9-11.3)
[2024-06-05 05:50] LABS: A/G RATIO 0.6 (1-2); ALBUMIN 2.8 g/dl (3.4-5.0); ANION GAP 16.4 (5-15); BILIRUBIN TOTAL 0.2 mg/dL (0.2-1.0); BUN/CREATININE RATIO 31.4 (14-18); C-REACTIVE PROTEIN 3.65 mg/dL (<0.30); CALCIUM 8.7 mg/dL (8.5-10.1); CREATININE 0.7 mg/dL (0.55-1.02); EST CRCL DRUG DOSING (CG) 123.61 mL/min; POTASSIUM,K 3.4 mEq/L (3.5-5.1); PROTEIN TOTAL,TP 7.2 g/dl (6.4-8.2)
[2024-06-05] MEDS: Potassium Chloride 20 MEQ Tab.ER PO ONE (10:43)
[2024-06-05 11:08] LABS: PHOSPHORUS 3.7 mg/dL (2.6-4.7)
[2024-06-05] MEDS: Azithromycin 250 MG Tab PO ONE (13:56)
== END 2024-06-05 14:09 | disposition home or self-care (01) | DRG 720 ==
LOC: JD.ED 15:58 → JD.MS 18:58
PROVIDERS: ADMIT Family Medicine; ATTEND Student in an Organized Health Care Education/Training Program
DX: A41.51 Sepsis due to Escherichia coli [E. coli] (principal); J96.01 Acute respiratory failure with hypoxia; J18.9 Pneumonia, unspecified organism; E87.20 Acidosis, unspecified; J44.1 Chronic obstructive pulmonary disease with (acute) exacerbation; J44.0 Chronic obstructive pulmonary disease with (acute) lower respiratory infection; R65.20 Severe sepsis without septic shock; H54.7 Unspecified visual loss; I10 Essential (primary) hypertension; G43.909 Migraine, unspecified, not intractable, without status migrainosus; F41.9 Anxiety disorder, unspecified; E03.9 Hypothyroidism, unspecified; R74.01 Elevation of levels of liver transaminase levels; E80.6 Other disorders of bilirubin metabolism; G50.0 Trigeminal neuralgia; E11.65 Type 2 diabetes mellitus with hyperglycemia; N39.0 Urinary tract infection, site not specified; Z91.018 Allergy to other foods; Z91.030 Bee allergy status; Z79.82 Long term (current) use of aspirin; Z79.84 Long term (current) use of oral hypoglycemic drugs; Z79.899 Other long term (current) drug therapy; Z87.81 Personal history of (healed) traumatic fracture; Z98.890 Other specified postprocedural states; Z90.49 Acquired absence of other specified parts of digestive tract; Z98.891 History of uterine scar from previous surgery
CPT/HCPCS: 36415; 70450; 70450-26; 70491; 70491-26; 71045; 71045-26; 71275; 71275-26; 74177; 74177-26; 80048; 80053; 81001; 82803; 82947; 83036; 83605; 83690; 83735; 84100; 84484; 84703; 85025; 85379; 86140; 87040; 87077; 87154; 87186; 93005; 93010; 94640; 94760; 94761; 96361; 96365; 96375; 99285; 99285-25; A9270-GY; J0456; J0696; J1650; J1815; J2270; J2405; J2919; J3010; J3490; J7030; J7050; J7620-GY; Q9967

== ENCOUNTER 2024-12-19 18:52 | Emergency (ER) | payer BC, MEDICAID ==
[2024-12-19] MEDS: Sulfamethoxazole/Trimethoprim 800-160 MG Tab PO ONE (19:31)
[2024-12-19] MEDS: Acetaminophen 325 MG Tab PO ONE (19:31)
[2024-12-19] MEDS: Ketorolac 60 MG/2 ML SDV IM ONE (19:34)
[2024-12-19] MEDS: cefTRIAXone 1 GM, Lidocaine 1% 2.1 ML IM ONE (19:36)
== END 2024-12-19 20:10 | disposition home or self-care (01) ==
LOC: JD.ED 18:52
DX: L03.116 Cellulitis of left lower limb (principal); I10 Essential (primary) hypertension; J45.909 Unspecified asthma, uncomplicated; Z88.8 Allergy status to other drugs, medicaments and biological substances; Z79.82 Long term (current) use of aspirin; Z79.899 Other long term (current) drug therapy; Z79.84 Long term (current) use of oral hypoglycemic drugs; Z90.49 Acquired absence of other specified parts of digestive tract
CPT/HCPCS: 96372; 99283; A9270; J0696; J1885; J2003

== ENCOUNTER 2024-12-20 12:54 | Emergency (ER) | payer BC ==
[2024-12-20] MEDS: cefTRIAXone 2 GM, Lidocaine 1% 4.2 ML IM ONE (13:31)
[2024-12-20] MEDS: Ketorolac 60 MG/2 ML SDV IM ONE (13:31)
[2024-12-20] MEDS: Sulfamethoxazole/Trimethoprim 800-160 MG Tab PO STA (13:31)
== END 2024-12-20 14:05 | disposition home or self-care (01) ==
LOC: JD.ED 12:54
DX: L03.116 Cellulitis of left lower limb (principal); J45.909 Unspecified asthma, uncomplicated; I10 Essential (primary) hypertension; L02.429 Furuncle of limb, unspecified; Z88.8 Allergy status to other drugs, medicaments and biological substances; Z79.82 Long term (current) use of aspirin; Z79.899 Other long term (current) drug therapy; Z79.84 Long term (current) use of oral hypoglycemic drugs; Z90.49 Acquired absence of other specified parts of digestive tract
CPT/HCPCS: 96372; 99283; A9270; J0696; J1885; J2003